=== PATIENT | male | born 1960 | race African-American/Black ===

== ENCOUNTER 2020-05-02 14:48 | Outpatient (REF) | payer BC, SELFPAY ==
[2020-05-02 16:14] LABS: Alanine Aminotransferase 21 U/L (0-40); Albumin Level 4.3 g/dL (3.5-5.0); Alkaline Phosphatase 74 U/L (39-117); Aspartate Amino Transferase 18 U/L (5-37); Bilirubin Direct 0.2 mg/dL (0.0-0.5); Bilirubin Total 0.9 mg/dL (0.0-1.0); Cholesterol 243 mg/dL; HDL Cholesterol 40 mg/dL; LDL Cholesterol Calculated 182 mg/dl; Total Protein 7.1 g/dL (6.5-8.0); Triglycerides 106 mg/dL
== END 2020-05-02 14:49 | disposition home or self-care (01) ==
LOC: HO.LAB 14:48
PROVIDERS: PCP Internal Medicine; Visit Provider Internal Medicine
DX: E78.00 Pure hypercholesterolemia, unspecified (principal); N41.1 Chronic prostatitis; R97.20 Elevated prostate specific antigen [PSA]
CPT/HCPCS: 80061; 80076

== ENCOUNTER 2020-07-01 07:54 | Outpatient (REF) | payer BC, SELFPAY ==
[2020-07-01 09:16] LABS: PSA,Total (Free>4and<10) 1.91 ng/mL (0.00-4.00)
== END 2020-07-01 07:55 | disposition home or self-care (01) ==
LOC: HO.LAB 07:54
PROVIDERS: Visit Provider Urology
DX: N32.0 Bladder-neck obstruction (principal); Z12.5 Encounter for screening for malignant neoplasm of prostate
CPT/HCPCS: 36415; 84153

== ENCOUNTER → 2020-07-03 15:36 | Outpatient (BNVA) | payer BC, SELFPAY | PROVIDERS: PCP Internal Medicine; Referring Provider Internal Medicine; Visit Provider Urology ==

== ENCOUNTER 2021-01-17 11:27 | Outpatient (REF) | payer BC, SELFPAY ==
[2021-01-17 13:02] LABS: Prostate Specific Antigen 1.79 ng/mL (<0.05-4.0)
== END 2021-01-17 11:28 | disposition home or self-care (01) ==
LOC: HO.LAB 11:27
PROVIDERS: PCP Internal Medicine; Visit Provider Urology
DX: N40.1 Benign prostatic hyperplasia with lower urinary tract symptoms (principal); N13.8 Other obstructive and reflux uropathy; Z12.5 Encounter for screening for malignant neoplasm of prostate
CPT/HCPCS: 36415; 84153

== ENCOUNTER → 2021-01-23 14:55 | Outpatient (BNVA) | payer BC, SELFPAY | PROVIDERS: PCP Internal Medicine; Visit Provider Urology ==

== ENCOUNTER 2021-09-09 15:16 | Outpatient (REF) | payer BC, SELFPAY ==
[2021-09-09 15:33] LABS: MANUAL DIFF FLAG NO
[2021-09-09 15:39] LABS: Basophils Percent Auto 0.6 % (0-2); Eosinophils Absolute Auto 0.1 X10*3/uL (0.0-0.4); Eosinophils Percent Auto 1.9 % (0-4); Hematocrit 40.3 % (42.0-52.0); Hemoglobin 13.1 g/dl (14.0-18.0); Imm Gran Abs Auto 0.01 X10*3/uL (0.00-0.03); Imm Gran Pct Auto 0.2 % (0.0-0.4); Lymphocytes Absolute Auto 2.6 X10*3/uL (1.2-4.9); Lymphocytes Percent Auto 54.9 % (20-40); Mean Corpuscular HGB Conc 32.5 g/dl (31.0-36.0); Mean Corpuscular Hemoglobin 28.3 pg (27.0-33.0); Mean Platelet Volume 10.6 fL (9.4-12.4); Monocytes Absolute Auto 0.4 X10*3/uL (0.1-1.2); Monocytes Percent Auto 7.9 % (2-11); Neutrophils Absolute Auto 1.6 x10*3/uL (2.0-8.3); Neutrophils Percent Auto 34.5 % (45-73); Platelet Count 230 X10*3/uL (160-400); Red Blood Count 4.63 X10*6/uL (4.60-5.80); White Blood Count 4.7 X10*3/uL (4.8-10.8)
[2021-09-09 16:15] LABS: Alanine Aminotransferase 19 U/L (0-40); Albumin Level 4.2 g/dL (3.5-5.0); Alkaline Phosphatase 67 U/L (39-117); Anion Gap 8 (12-20); Aspartate Amino Transferase 15 U/L (5-37); Bilirubin Total 0.7 mg/dL (0.0-1.0); Blood Urea Nitrogen 12 mg/dL (9-16); Carbon Dioxide 28 mmol/L (22-29); Chloride 105 mmol/L (96-108); Cholesterol 241 mg/dL; Estimated Glomerular Filt Rate > 60; Glucose Random 86 mg/dL (60-115); HDL Cholesterol 37 mg/dL; LDL Cholesterol Calculated 177 mg/dl; Potassium 4.2 mmol/L (3.3-5.1); Sodium 137 mmol/L (135-145); Total Protein 7.1 g/dL (6.5-8.0); Triglycerides 135 mg/dL
[2021-09-09 16:35] LABS: Prostate Specific Antigen 1.76 ng/mL (<0.05-4.0); Thyroid Stimulating Hormone 1.08 uIU/mL (0.32-4.0)
[2021-09-09 16:36] LABS: Free T4 (Free Thyroxine) 1.05 ng/dL (0.71-1.85)
[2021-09-09 16:58] LABS: Folate 18.3 ng/mL (> or = 4.0); Vitamin B12 873 pg/mL (200-900)
== END 2021-09-09 15:17 | disposition home or self-care (01) ==
LOC: HO.LAB 15:16
PROVIDERS: Urology; PCP Internal Medicine; Visit Provider Internal Medicine
DX: E78.00 Pure hypercholesterolemia, unspecified (principal); R97.20 Elevated prostate specific antigen [PSA]; N40.1 Benign prostatic hyperplasia with lower urinary tract symptoms; N13.8 Other obstructive and reflux uropathy; Z12.5 Encounter for screening for malignant neoplasm of prostate
CPT/HCPCS: 36415; 80053; 80061; 82607; 82746; 84153; 84439; 84443; 85025

== ENCOUNTER 2022-01-19 15:24 | Outpatient (REF) | payer BC, SELFPAY ==
[2022-01-19 18:01] LABS: PSA,Total (Free>4and<10) 1.72 ng/mL (0.00-4.00)
== END 2022-01-19 15:25 | disposition home or self-care (01) ==
LOC: HO.LAB 15:24
PROVIDERS: PCP Internal Medicine; Visit Provider Urology
DX: Z12.5 Encounter for screening for malignant neoplasm of prostate (principal); N41.1 Chronic prostatitis
CPT/HCPCS: 36415; 84153

== ENCOUNTER → 2022-01-23 14:21 | Outpatient (BNVA) | payer BC, SELFPAY | PROVIDERS: PCP Internal Medicine; Visit Provider Urology | DX: N40.1 Benign prostatic hyperplasia with lower urinary tract symptoms (principal); N13.8 Other obstructive and reflux uropathy; N41.1 Chronic prostatitis | CPT/HCPCS: 51798 ==

== ENCOUNTER 2022-03-25 14:44 | Outpatient (REF) | payer BC, SELFPAY ==
[2022-03-25 15:00] LABS: MANUAL DIFF FLAG NO
[2022-03-25 16:09] LABS: Basophils Percent Auto 0.6 % (0-2); Eosinophils Absolute Auto 0.1 X10*3/uL (0.0-0.4); Eosinophils Percent Auto 1.2 % (0-4); Hematocrit 41.1 % (42.0-52.0); Hemoglobin 13.8 g/dl (14.0-18.0); Imm Gran Abs Auto 0.01 X10*3/uL (0.00-0.03); Imm Gran Pct Auto 0.2 % (0.0-0.4); Immature Retic Fraction 15.7 % (2.3-13.4); Lymphocytes Absolute Auto 2.8 X10*3/uL (1.2-4.9); Lymphocytes Percent Auto 55.1 % (20-40); Mean Corpuscular HGB Conc 33.6 g/dl (31.0-36.0); Mean Corpuscular Volume 86.3 fL (80.0-98.0); Mean Platelet Volume 11.6 fL (9.4-12.4); Monocytes Absolute Auto 0.5 X10*3/uL (0.1-1.2); Monocytes Percent Auto 9.2 % (2-11); Neutrophils Absolute Auto 1.7 x10*3/uL (2.0-8.3); Neutrophils Percent Auto 33.7 % (45-73); Platelet Count 253 X10*3/uL (160-400); Red Blood Count 4.76 X10*6/uL (4.60-5.80); Red Cell Distribution Width 13.9 % (11.0-16.0); Retic HGB Equivalent 34.3 pg (30.0-35.0); Reticulocyte Percent 1.5 % (0.5-1.8); Reticulocytes Absolute 0.072 X10*6/uL (0.026-0.095)
[2022-03-25 16:43] LABS: Alanine Aminotransferase 18 U/L (0-40); Albumin Level 4.6 g/dL (3.5-5.0); Alkaline Phosphatase 67 U/L (39-117); Anion Gap 15 (12-20); Aspartate Amino Transferase 19 U/L (5-37); Bilirubin Total 0.7 mg/dL (0.0-1.0); Blood Urea Nitrogen 12 mg/dL (9-16); Calcium 10.3 mg/dL (8.4-10.2); Carbon Dioxide 27 mmol/L (22-29); Chloride 103 mmol/L (96-108); Cholesterol 286 mg/dL; Estimated Glomerular Filt Rate > 60; Glucose Random 76 mg/dL (60-115); HDL Cholesterol 42 mg/dL; Iron 97 mcg/dL (45-160); LDL Cholesterol Calculated 221 mg/dl; Percent Iron Saturation 27 % (15-50); Potassium 4.5 mmol/L (3.3-5.1); Sodium 140 mmol/L (135-145); Total Iron Binding Capacity 357 mcg/dL (228-428); Total Protein 7.5 g/dL (6.5-8.0); Triglycerides 116 mg/dL; Unsaturated Iron Binding 260 ug/dL
[2022-03-25 17:06] LABS: Ferritin 45 ng/mL (20-250)
[2022-03-25 17:10] LABS: Folate > 20.0 ng/mL (> or = 4.0); Vitamin B12 1044 pg/mL (200-900)
== END 2022-03-25 14:45 | disposition home or self-care (01) ==
LOC: HO.LAB 14:44
PROVIDERS: PCP Internal Medicine; Visit Provider Internal Medicine
DX: E78.00 Pure hypercholesterolemia, unspecified (principal); D64.9 Anemia, unspecified
CPT/HCPCS: 36415; 80053; 80061; 82607; 82728; 82746; 83540; 85025; 85045

== ENCOUNTER 2022-07-13 15:40 | Outpatient (REF) | payer BC, SELFPAY ==
[2022-07-13 17:17] LABS: Alanine Aminotransferase 20 U/L (0-40); Albumin Level 4.3 g/dL (3.5-5.0); Alkaline Phosphatase 73 U/L (39-117); Anion Gap 12 (12-20); Aspartate Amino Transferase 20 U/L (5-37); Bilirubin Total 0.7 mg/dL (0.0-1.0); Blood Urea Nitrogen 13 mg/dL (9-16); Calcium 9.8 mg/dL (8.4-10.2); Carbon Dioxide 28 mmol/L (22-29); Chloride 105 mmol/L (96-108); Cholesterol 166 mg/dL; Estimated Glomerular Filt Rate > 60; Glucose Random 85 mg/dL (60-115); HDL Cholesterol 38 mg/dL; LDL Cholesterol Calculated 111 mg/dl; Potassium 4.8 mmol/L (3.3-5.1); Sodium 140 mmol/L (135-145); Triglycerides 88 mg/dL
== END 2022-07-13 15:41 | disposition home or self-care (01) ==
LOC: HO.LAB 15:40
PROVIDERS: PCP Internal Medicine; Visit Provider Internal Medicine
DX: E78.00 Pure hypercholesterolemia, unspecified (principal); N40.1 Benign prostatic hyperplasia with lower urinary tract symptoms; N13.8 Other obstructive and reflux uropathy
CPT/HCPCS: 36415; 80053; 80061

== ENCOUNTER 2022-09-09 15:00 | Outpatient (REF) | payer BC, SELFPAY ==
[2022-09-09 15:20] LABS: MANUAL DIFF FLAG NO
[2022-09-09 15:53] LABS: Basophils Percent Auto 0.6 % (0-2); Eosinophils Absolute Auto 0.1 X10*3/uL (0.0-0.4); Eosinophils Percent Auto 1.2 % (0-4); Hematocrit 42.4 % (42.0-52.0); Hemoglobin 14.1 g/dl (14.0-18.0); Imm Gran Abs Auto 0.01 X10*3/uL (0.00-0.03); Imm Gran Pct Auto 0.2 % (0.0-0.4); Immature Retic Fraction 12.5 % (2.3-13.4); Lymphocytes Absolute Auto 2.8 X10*3/uL (1.2-4.9); Lymphocytes Percent Auto 55.3 % (20-40); Mean Corpuscular HGB Conc 33.3 g/dl (31.0-36.0); Mean Corpuscular Hemoglobin 28.7 pg (27.0-33.0); Mean Corpuscular Volume 86.4 fL (80.0-98.0); Mean Platelet Volume 11.1 fL (9.4-12.4); Monocytes Absolute Auto 0.5 X10*3/uL (0.1-1.2); Monocytes Percent Auto 9.6 % (2-11); Neutrophils Absolute Auto 1.7 x10*3/uL (2.0-8.3); Neutrophils Percent Auto 33.1 % (45-73); Platelet Count 246 X10*3/uL (160-400); Red Blood Count 4.91 X10*6/uL (4.60-5.80); Red Cell Distribution Width 14.5 % (11.0-16.0); Retic HGB Equivalent 34.4 pg (30.0-35.0); Reticulocyte Percent 1.5 % (0.5-1.8); Reticulocytes Absolute 0.072 X10*6/uL (0.026-0.095); White Blood Count 5.1 X10*3/uL (4.8-10.8)
[2022-09-09 16:43] LABS: Ferritin 34 ng/mL (20-250); Prostate Specific Antigen Scr 2.04 ng/mL (<0.05-4.0)
== END 2022-09-09 15:01 | disposition home or self-care (01) ==
LOC: HO.LAB 15:00
PROVIDERS: PCP Internal Medicine; Visit Provider Internal Medicine
DX: Z12.5 Encounter for screening for malignant neoplasm of prostate (principal); E78.00 Pure hypercholesterolemia, unspecified; D64.9 Anemia, unspecified
CPT/HCPCS: 36415; 82728; 84153; 84439; 85025; 85045

== ENCOUNTER 2022-12-16 13:40 | Outpatient (REF) | payer BC, SELFPAY ==
[2022-12-16 15:03] LABS: Alanine Aminotransferase 16 U/L (0-40); Albumin Level 4.5 g/dL (3.5-5.0); Alkaline Phosphatase 64 U/L (39-117); Anion Gap 14 (12-20); Aspartate Amino Transferase 19 U/L (5-37); Blood Urea Nitrogen 13 mg/dL (9-16); Calcium 10.6 mg/dL (8.4-10.2); Carbon Dioxide 27 mmol/L (22-29); Chloride 109 mmol/L (96-108); Cholesterol 264 mg/dL; Estimated Glomerular Filt Rate > 60; Glucose Random 86 mg/dL (60-115); HDL Cholesterol 43 mg/dL; Iron 118 mcg/dL (45-160); LDL Cholesterol Calculated 195 mg/dl; Percent Iron Saturation 36 % (15-50); Potassium 4.5 mmol/L (3.3-5.1); Sodium 145 mmol/L (135-145); Total Iron Binding Capacity 324 mcg/dL (228-428); Total Protein 7.6 g/dL (6.5-8.0); Triglycerides 131 mg/dL; Unsaturated Iron Binding 206 ug/dL
[2022-12-16 15:17] LABS: Thyroid Stimulating Hormone 1.74 uIU/mL (0.32-4.0)
== END 2022-12-16 13:41 | disposition home or self-care (01) ==
LOC: HO.LAB 13:40
PROVIDERS: Absent Provider Urology; PCP Internal Medicine; Visit Provider Internal Medicine
DX: E78.00 Pure hypercholesterolemia, unspecified (principal); D64.9 Anemia, unspecified; N13.8 Other obstructive and reflux uropathy; N40.1 Benign prostatic hyperplasia with lower urinary tract symptoms; Z12.5 Encounter for screening for malignant neoplasm of prostate
CPT/HCPCS: 36415; 80053; 80061; 82607; 82746; 83540; 84153; 84443

== ENCOUNTER 2023-01-26 14:30 | Outpatient (AMB) | payer BC, SELFPAY ==
--- NOTE | 2023-01-26 14:39 | A.OFFVIS_ITS ---
Intake Intake Visit Reasons: 1Y PSA/PVR(set) Intake Note: Patient is present for Follow Up psa/pvr Urology Med: None Antibiotic Allergy: None Blood Thinner: None [facility]: [facility] PVR:6ML Allergies cinnamon Allergy (Unknown, Verified 01/26/23 14:39) rash pravastatin Adverse Reaction (Intermediate, Verified 01/26/23 14:39) drowsiness rosuvastatin Adverse Reaction (Intermediate, Verified 01/26/23 14:39) myalgia simvastatin Adverse Reaction (Intermediate, Verified 01/26/23 14:39) epigastric pain cologne Allergy (Unknown, Uncoded 01/26/23 14:39) redness and itching spices Allergy (Unknown, Uncoded 01/26/23 14:39) redness and itching HPI HPI Comments History of Present Illness Details Carlos RUTLEDGE is a very pleasant [facility] male. He is a patient of Dr Page. He is seen for the following urologic conditions - lower urinary tract symptoms - elevated PSA Minimal urinary issues PSA remains low 12 month follow-up Elevated PSA/Abnormal RADHA: Finished finasteride previously He presents for further evaluation of elevated PSA Current management is medication with 5AR. Laboratory investigations include a total PSA evaluation August 2016 6.2, 6.0, free PSA 8% 02/28 PSA 8.5 - persistent elevation 09/29 PSA 7.4, 09/30 PSA 8.2, 04/01 4.3 10/31 4.9 (stopped finasteride a month ago), 07/04 1.9, 02/01 1.8, 02/02 1.7, 09/03 2.0. 01/03 2.2 Imaging investigations include a transrectal ultrasound Yes Date 09/28 Prostate Volume 55 a prostate MRI Yes 03/31 45gm No areas of diffusion uptake Individualized Prostate Cancer Risk Calculator >10% high risk - PCPT 30% high risk , Discussion regarding TRUS biopsy performed. A TRUS biopsy has been performed and is negative 09/28 multiple cores of chronic prostatitis Therapeutic plan will be continued surveillance ON LICENSE OF [facility] Medical History Chronic prostatitis High prostate specific antigen (PSA) Hypercalcemia Hypercholesterolemia Vitamin D deficiency Surgical History S/P TURP (status post transurethral resection of prostate) Family History Father No problems noted. Mother Stroke Sister Breast cancer Hypertension Brother Diabetes Social History Housing: Apartment Alcohol intake: current Patient Tobacco Use Status: Never used Tobacco e-Cigarette/Vaping Use: Never Used Second Hand Smoke Exposure: No service: No Current occupational status: employed Cognitive needs: No Hearing needs: No Vision needs: Yes Review of Systems Const Denies chills and Denies fever(s) Card Reports no additional complaints and Denies syncope Resp Denies cough GI Denies abdominal pain and Denies heartburn Reports as per HPI and Denies change in libido Neuro Denies syncope Psych Denies change in libido Endo Denies change in libido Physical Exam Const General: cooperative, healthy appearing, comfortable and no acute distress Orientation/consciousness: patient oriented x3 HEENT Face and sinus: Yes normal facial exam Mouth: moist mucous membranes Neck Neck: Yes normal visual inspection, Yes full ROM and Yes trachea midline Chest Chest palpation & inspection: normal inspection of the chest Resp Effort & Inspection: normal respiratory effort, able to speak in complete sent ences and no respiratory distress GI Inspection: Yes normal to inspection Back/Spine/Pelvis Cervical Spine: normal cervical lordosis Thoracic/Lumbar Spine: thoracic and lumbar spine normal to inspection Skin General skin exam: no rashes or lesions noted Neuro General: patient oriented x3, gait normal, tone normal and moves all extremities Extrem General: Yes normal to inspection and Yes capillary refill normal Office Procedures Post Void Residual Post Residual Void Post Void Residual (PVR): 6 62545-[id number] Void Residual by ultrasound Results AMB Urinalysis, Automated UA Leukoctes 0 Elie/uL Last Edit by RUPESH Barber on 01/26/23 14:51 UA Nitrite Negative Last Edit by RUPESH Barber on 01/26/23 14:51 UA Urobilinogen 0.2 mg/dL Last Edit by RUPESH Barber on 01/26/23 14:5 1 UA Protein 0 mg/dL Last Edit by RUPESH Barber on 01/26/23 14:51 UA pH 6.0 Last Edit by Yessi Briseno, RMA on 01/26/23 14:51 UA Blood 0 Chandler/uL Last Edit by Yessi Briseno, RMA on 01/26/23 14:51 UA Specific Newell 1.010 Last Edit by Yessi Briseno, RMA on 01/26/23 14: 51 UA Ketone Negative Last Edit by Yessi Briseno, RMA on 01/26/23 14:51 UA Bilirubin 0 mg/dL Last Edit by Yessi Briseno, RMA on 01/26/23 14:51 UA Glucose 0 mg/dL Last Edit by Yessi Reidro, RMA on 01/26/23 14:51 Results Reviewed Results Reviewed: Laboratory Last Values Urine pH (Auto) 6.0 01/26/23 14:41 Specific Newell (Auto) 1.010 01/26/23 14:41 Urine Protein (Auto) 0 mg/dL 01/26/23 14:41 Glucose (UA)(Auto) 0 mg/dL 01/26/23 14:41 Urine Ketones (Auto) Negative 01/26/23 14:41 Urine Blood (Auto) 0 Chandler/uL 01/26/23 14:41 Urine Nitrite (Auto) Negative 01/26/23 14:41 Urine Bilirubin (Auto) 0 mg/dL 01/26/23 14:41 Urine Urobilinogen (Auto) 0.2 mg/dL 01/26/23 14:41 Leukocyte Esterase (Auto) 0 Elie/uL 01/26/23 14:41 Assessment & Plan Assessment & Plan (1) BPH w urinary obs/LUTS: Code(s): N40.1 - Benign prostatic hyperplasia with lower urinary tract symptoms; N13.8 - Other obstructive and reflux uropathy (2) Chronic prostatitis: Code(s): N41.1 - Chronic prostatitis Plan Twelve month follow-up Orders: Orders AMB Urinalysis Automated Today Z13.9 - Encounter for screening, unspecified AMB Post Void Residual by ultrasound Today N13.8 - Other obstructive and reflux uropathy, N40.1 - Benign prostatic hyperplasia with lower urinary tract symptoms Patient Instructions: Imaging studies, laboratory and physical exam results were discussed and reviewed in detail. No major barriers to patient understanding were identified. An opportunity to ask questions regarding the treatment plan was provided. All questions were answered. The patient expressed understanding and agreement with the above treatment plan. The patient is aware they should contact our office by phone for worsening of their current condition or the appearance of new urologic symptoms. Compliance is encouraged with any medications and followup testing that is ordered. It is a privilege to participate in the urologic care of your patient. If you have any questions or concerns regarding treatment for the above conditions, or other urologic issues, please do not hesitate to contact me. The office telephone contact is [phone]. This note is constructed using voice recognition software. While every effort has been made to ensure accuracy manufacturing technologist errors may have been included. Yours sincerely, Dr Jessee Agosto MD, [facility] - Urology Providers of Expert, Compassionate Care for the Genitourinary System Coding Level of Care Code Est Pt Level 4 (82966) Diagnoses BPH w urinary obs/LUTS N40.1; N13.8 Chronic prostatitis N41.1 CPT Codes Post Residual Void - PVR CPT Code: 52299-Oalz Void Residual by ultrasound ([id number])
== END 2023-01-26 15:49 | disposition home or self-care (01) ==
PROVIDERS: Visit Provider Urology
DX: N40.1 Benign prostatic hyperplasia with lower urinary tract symptoms (principal); N13.8 Other obstructive and reflux uropathy; N41.1 Chronic prostatitis
CPT/HCPCS: 99214

== ENCOUNTER → 2023-01-26 14:30 | Outpatient (BNVA) | payer BC, SELFPAY | PROVIDERS: Visit Provider Urology | DX: N40.1 Benign prostatic hyperplasia with lower urinary tract symptoms (principal); N13.8 Other obstructive and reflux uropathy; R97.20 Elevated prostate specific antigen [PSA]; N41.1 Chronic prostatitis | CPT/HCPCS: 51798 ==

== ENCOUNTER 2023-04-07 14:59 | Outpatient (REF) | payer BC, SELFPAY ==
[2023-04-07 15:52] LABS: Alanine Aminotransferase 16 U/L (0-40); Albumin Level 4.3 g/dL (3.5-5.0); Alkaline Phosphatase 77 U/L (39-117); Anion Gap 10 (12-20); Aspartate Amino Transferase 19 U/L (5-37); Bilirubin Total 0.8 mg/dL (0.0-1.0); Blood Urea Nitrogen 11 mg/dL (9-16); Calcium 10.2 mg/dL (8.4-10.2); Carbon Dioxide 28 mmol/L (22-29); Chloride 105 mmol/L (96-108); Cholesterol 210 mg/dL (<200); Estimated Glomerular Filt Rate > 60; Glucose Random 86 mg/dL (60-115); HDL Cholesterol 36 mg/dL (>40); LDL Cholesterol Calculated 149 mg/dL (<100); Potassium 3.9 mmol/L (3.3-5.1); Sodium 139 mmol/L (135-145); Total Protein 7.4 g/dL (6.5-8.0); Triglycerides 128 mg/dL (<150)
[2023-04-08 14:39] LABS: Calcium (PTHI) 9.8 mg/dL (8.6-10.3); PTHI 67 pg/mL (16-77)
[2023-04-09 11:13] LABS: Calcium, Ionized 5.4 mg/dL (4.7-5.5)
== END 2023-04-07 15:00 | disposition home or self-care (01) ==
LOC: HO.LAB 14:59
PROVIDERS: PCP Internal Medicine; Visit Provider Internal Medicine
DX: E83.52 Hypercalcemia (principal); E78.00 Pure hypercholesterolemia, unspecified
CPT/HCPCS: 36415; 80053; 80061; 82330; 83970

== ENCOUNTER 2023-04-09 13:51 | Outpatient (AMB) | payer BC, SELFPAY ==
[2023-04-09 13:57] VITALS: BP 132/70; PULSE 66; O2SAT 98; BMI 25.7
--- NOTE | 2023-04-09 13:57 | A.OFFPC_ITS ---
Vital Signs 04/09/23 13:57 Height 6 ft 2 in Weight 200 lb BMI 25.7 BP 132/70 Blood Pressure Location Lt brachial Position Sitting Pulse 66 Pulse Source Pulse Oximeter Pulse Oximetry (%) 98 Oxygen Delivery Method Room Air Intake Visit Reasons: cholesterol,hypercalcemia Allergies cinnamon Allergy (Unknown, Verified 04/09/23 13:57) rash pravastatin Adverse Reaction (Intermediate, Verified 04/09/23 13:57) drowsiness rosuvastatin Adverse Reaction (Intermediate, Verified 04/09/23 13:57) myalgia simvastatin Adverse Reaction (Intermediate, Verified 04/09/23 13:57) epigastric pain cologne Allergy (Unknown, Uncoded 04/09/23 13:57) redness and itching spices Allergy (Unknown, Uncoded 04/09/23 13:57) redness and itching Tobacco use date assessed: 09/11/22 Dental Screening Dental Screen Date: 04/09/23 Did you have a dental visit in the last 12 months?: Yes Did you have a dental problem in the last 6 months where you did not have access to dental care?: No Was dental information given to patient?: Patient has dentist HPI cholesterol,hypercalcemia HPI Details 62-year-old male with history of hyperch olesterolemia noted to have an elevated blood pressure in December patient comes in for follow-up. Review of the notes in January went to see the urologist diagnosis of chronic prostatitis and continue to be followed. [facility] Medical History Vitamin D deficiency High prostate specific antigen (PSA) Hypercalcemia Chronic prostatitis Hypercholesterolemia Surgical History S/P TURP (status post transurethral resection of prostate) Family History Father No problems noted. Mother Stroke Sister Breast cancer Hypertension Brother Diabetes Social History Housing: Apartment Alcohol intake: current Patient Tobacco Use Status: Never used Tobacco e-Cigarette/Vaping Use: Never Used Second Hand Smoke Exposure: No service: No Current occupational status: employed Cognitive needs: No Hearing needs: No Vision needs: Yes Questionnaire PHQ-9 Over the last 2 weeks, how often have you been bothered by any of the following problems? 1. Little interest or pleasure in doing things: not at all 2. Feeling down, depressed, or hopeless: not at all 3. Trouble falling or staying asleep, or sleeping too much: not at all 4. Feeling tired or having little energy: not at all 5. Poor appetite or overeating: not at all 6. Feeling bad about yourself - or that you are a failure or have let yourself or your family down: not at all 7. Trouble concentrating on things, such as reading the newspaper or watching television: not at all 8. Moving or speaking so slowly that other people could have noticed. Or the opposite - being so fidgety or restless that you have been moving around a lot more than usual: not at all 9. Thoughts that you would be better off or of hurting yourself in some way: not at all Total score: 0 Depression Screening Interpretation: Negative Depression Screening Done: Yes Source: Developed by Drs. Jose Barreto, Vicenta Bashir, Luis Morton and colleagues, with an educational radha from [employer]. Thrive Questionnaire Date Thrive assessed: 09/11/22 AUDIT C Alcohol Use Questionnaire (AUDIT-C) 1. How often do you have a drink containing alcohol?: Monthly or less 2. How many drinks containing alcohol do you have on a typical day when you are drinking?: 1 or 2 3. How often do you have six or more drinks on one occasion?: Never Total Score: 1 TIMI-7 AMB Questionnaire TIMI-7 Date TIMI - 7 assessed: 09/11/22 Source: Developed by Drs. Jose Barreto, Vicenta Bashir, Luis Morton and colleagues, with an educational radha from [employer]. Physical exam (Primary Care) Vital Signs: Last Vital Signs Pulse 66 04/09/23 13:57 BP 132/70 04/09/23 13:57 Pulse Ox 98 04/09/23 13:57 Oxygen Delivery Method Room Air 04/09/23 13:57 BMI result Body Mass Index 25.7 Tobacco/Smoking Status: Tobacco use Status Tobacco use date assessed 09/11/22 04/09/23 14:01 Patient Tobacco Use Status Never used Tobacco 04/09/23 14:01 e-Cigarette/Vaping Use Never Used 04/09/23 14:01 PHQ-9: PHQ-9 Score PHQ-9: Total score 0 04/09/23 14:01 Depression Screening Interpretation: Negative Thrive Assessment: Date of Thrive Assessment Date Thrive assessed 09/11/22 04/09/23 14:01 Const General: alert; No acute distress Eyes Conjunctivae: conjunctivae normal Resp Auscultation: clear to auscultation bilaterally Cardio Rate: regular rate Rhythm: regular rhythm GI Inspection: Yes normal to inspection Extrem General: Yes normal to inspection and No edema Assessment and Plan Assessment & Plan (1) Blood pressure elevated without history of HTN: Code(s): R03.0 - Elevated blood-pressure reading, without diagnosis of hypertension Plan: Blood pressure of follow-up has been normal (2) Colon cancer screening: Code(s): Z12.11 - Encounter for screening for malignant neoplasm of colon Plan: 05/21/2023 scheduled (3) Hypercalcemia: Code(s): E83.52 - Hypercalcemia Plan: Resolved (4) Chronic prostatitis: Code(s): N41.1 - Chronic prostatitis Plan: Patient follows up with urology and under surveillance (5) Hypercholesterolemia: Code(s): E78.00 - Pure hypercholesterolemia, unspecified Plan: Avoid fried foods, chicken skin, eggs, butter margarine, pastries and meat. Be it pork or beef they have a lot of cholesterol LDL goal of less than 130 and triglyceride of less than 150 on Zetia Orders: Orders Thyroid Stimulating Hormone 5 Months E78.00 - Pure hypercholesterolemia, unspecified Lipid Panel 5 Months E78.00 - Pure hypercholesterolemia, unspecified Vitamin B12 and Folate 5 Months E78.00 - Pure hypercholesterolemia, unspecified Prostate Specific Antigen Scr 5 Months E78.00 - Pure hypercholesterolemia, unspecified Complete Blood Count Auto Diff 5 Months E78.00 - Pure hypercholesterolemia, unspecified Comprehensive Met. Panel 5 Months E78.00 - Pure hypercholesterolemia, unspecified Free T4 (Free Thyroxine) 5 Months E78.00 - Pure hypercholesterolemia, unspecified Coding Level of Care Code Est Pt Level 4 (24852) Diagnoses Blood pressure elevated without history of HTN R03.0 Colon cancer screening Z12.11 Hypercalcemia E83.52 Chronic prostatitis N41.1 Hypercholesterolemia E78.00
== END 2023-04-09 14:40 | disposition home or self-care (01) ==
PROVIDERS: PCP Internal Medicine; Visit Provider Internal Medicine
DX: R03.0 Elevated blood-pressure reading, without diagnosis of hypertension (principal); Z12.11 Encounter for screening for malignant neoplasm of colon; E83.52 Hypercalcemia; N41.1 Chronic prostatitis; E78.00 Pure hypercholesterolemia, unspecified
CPT/HCPCS: 99214

== ENCOUNTER 2023-05-21 06:24 | Day surgery (SDC) | payer BC, SELFPAY ==
--- NOTE | 2023-05-19 13:56 | HO.ANESPROP2 ---
Documented by User: Rhea Webb NP 05/19/23 13:57 HPI - Anesthesia Eval Consult details Narrative: 62yo M for Colonoscopy PMFSH Active Problems Active Problems: All Active Problems (Updated 09/11/22 @ 16:53 by Suzi Page MD) Blood pressure elevated without history of HTN (Acute) Colon cancer screening (Acute) Hypercalcemia (Acute) Costochondritis (Acute) Anemia (Acute) Chronic prostatitis (Acute) BPH w urinary obs/LUTS (Acute) High prostate specific antigen (PSA) (Acute) Annual physical exam (Acute) Hypercholesterolemia (Acute) Past Medical History Medical History Vitamin D deficiency High prostate specific antigen (PSA) Hypercalcemia Chronic prostatitis Hypercholesterolemia Family History Family History Father No problems noted. Mother Stroke Sister Breast cancer Hypertension Brother Diabetes Surgical History Surgical History H/O colonoscopy S/P TURP (status post transurethral resection of prostate) Social History Social History Housing: Apartment Alcohol intake: current Patient Tobacco Use Status: Never used Tobacco e-Cigarette/Vaping Use: Never Used Second Hand Smoke Exposure: No Are you DNR?: No Advance Directives: No Advance Directives Information Provided: Yes Nutrition Risks: No Nutritional Risk service: No Current occupational status: employed Cognitive needs: No Hearing needs: No Vision needs: Yes Meds Allergies Allergy/AdvReac Type Severity Reaction Status Date / Time cinnamon Allergy Unknown rash Verified 05/21/23 06:34 pravastatin AdvReac Intermediate drowsiness Verified 05/21/23 06:34 rosuvastatin AdvReac Intermediate myalgia Verified 05/21/23 06:34 simvastatin AdvReac Intermediate epigastric Verified 05/21/23 06:34 pain cologne Allergy Unknown redness Uncoded 05/21/23 06:34 and itching spices Allergy Unknown redness Uncoded 05/21/23 06:34 and itching Home Medications Medication Instructions Recorded Confirmed Last Taken Type Men's Multi-Vitamin 05/21/23 05/21/23 Unknown History Assessment and Plan Assessment Anesthesia Assessment: Chart Reviewed Documented by User: Sea Lopez MD 05/21/23 07:16 PMF Past Medical History Medical History Vitamin D deficiency High prostate specific antigen (PSA) Hypercalcemia Chronic prostatitis Hypercholesterolemia Family History Family History Father No problems noted. Mother Stroke Sister Breast cancer Hypertension Brother Diabetes Family history of problems with anesthesia: No Surgical History Surgical History H/O colonoscopy S/P TURP (status post transurethral resection of prostate) History of Problems with Anesthesia: No Social History Social History Housing: Apartment Alcohol intake: current Patient Tobacco Use Status: Never used Tobacco e-Cigarette/Vaping Use: Never Used Second Hand Smoke Exposure: No Are you DNR?: No Advance Directives: No Advance Directives Information Provided: Yes Nutrition Risks: No Nutritional Risk service: No Current occupational status: employed Cognitive needs: No Hearing needs: No Vision needs: Yes Meds Allergies Allergy/AdvReac Type Severity Reaction Status Date / Time cinnamon Allergy Unknown rash Verified 05/21/23 06:34 pravastatin AdvReac Intermediate drowsiness Verified 05/21/23 06:34 rosuvastatin AdvReac Intermediate myalgia Verified 05/21/23 06:34 simvastatin AdvReac Intermediate epigastric Verified 05/21/23 06:34 pain cologne Allergy Unknown redness Uncoded 05/21/23 06:34 and itching spices Allergy Unknown redness Uncoded 05/21/23 06:34 and itching Home Medications Medication Instructions Recorded Confirmed Last Taken Type Men's Multi-Vitamin 05/21/23 05/21/23 Unknown History Exam Airway Mallampati Class: II TM Dist: >3cm Neck ROM: Limited Heart: rrr Lungs: cta Assessment and Plan Assessment Anesthesia Assessment: Anesthesia Plan Discussed Final Anesthetic Review Family History of Problems with Anesthesia: No History of Problems with Anesthesia: No NPO: Yes ASA Class: II Final Preanesthetic Review: No Changes in Pt Med Stat, Meds/Allgs Chart Reviewed, Consent Obtained/Reviewed and Anes Risks/Benef Reviewed Patient Risk: Intermediate Procedure Risk: Low Anesthetic Plan Anesthetic Plan: MAC: and Agree w/ Assess. and Plan
[2023-05-19 14:13] VITALS: BMI 25.7
--- OUTSIDE RECORDS SUMMARY | 2023-05-21 06:26 | XMS_ITS | Patient Health Record ---
Author Name Unknown Organization [facility] Address [address] [place] [id number] Care Team Providers Care Operations Manager Station Name Role Phone Suzi Page MD Primary Care Provider Jose Durant [phone] ALLERGIES No Known Allergies REASON FOR REFERRAL No Information MEDICATIONS Medication SIG (Take, Route, Frequency, Duration) Notes Start Date End Date Status Zinc 50 MG 1 tablet Orally Once a day for 30 day(s) Active Vitamin D 25 MCG (1000 UT) 1 tablet Oral ly Once a day for 30 day(s) Active Ezetimibe 10 MG TAKE 1 TABLET BY GRAZYNA TH EVERY DAY Oral for 90 Active SOCIAL HISTORY Sex Assigned At : Social History Observation Description Sex Assigned At Unknown PROBLEMS Problem Type ICD Code Onset Dates Problem Status W/U Status Risk SNOMED Code Notes Problem Screen for colon cancer (Z12.11) Active confirmed [id number] Problem Preprocedural examination (Z01.818) Active confirmed [id number] Encounters Encounter Location Date Provider Diagnosis [facility] Outpatient [address] [place] [id number] 05/21/2023 Jose Ramirez [facility] [address] [place] [phone] 02/04/2023 Jose Ramirez Screen for colon cancer Z12.11 and Preprocedural examination Z01.818 ASSESSMENTS Encounter Date Diagnosis Assessment Notes Treatment Notes Treatment Clinical Notes 02/04/2023 Screen for colon cancer (ICD-10 - Z12.11) 02/04/2023 Preprocedural examination (ICD-10 - Z01.818) PLAN OF TREATMENT Future Test Test Name Order Date COLONOSCOPY 09/08/2012 COLONOSCOPY 02/04/2023 Next Appt Details Provider Name:Jose Ramirez , 05/21/2023 07:30:00 AM, [address] [place] [address] , [place], [place], [phone], Insurance Providers Payer Name Payer Address Payer Phone Subscriber Number Group Number Insured Name Patient Relationship to Insured Coverage Start Date Coverage End Date [facility] [address] [place], [place] [id number] BLANCHE RUTLEDGE Self - patient is the insured MEDICAL (GENERAL) HISTORY Medical History History ICD Code Denies NE,DM,CVA,Lung disease,renal dise ase hypercholesterolemia Negative screening colonoscopy in 2012 Surgical History Surgery Date(Month/Year)
[2023-05-21 06:33] VITALS: BMI 25.9
[2023-05-21] MEDS: Lactated Ringers 1,000 ML 100 ML IVCONT (06:44)
[2023-05-21 06:52] VITALS: BP 132/84; PULSE 66; RESP 18; TEMP 36.6; O2SAT 100
[2023-05-21 08:36] VITALS: BP 124/80; PULSE 70; RESP 16; TEMP 36.9; O2SAT 98
--- NOTE | 2023-05-21 08:40 | PM.OP ---
Brief Operative Note Date of Service: 05/21/23 Pre-op diagnosis: Screening Post-op diagnosis: other (Diverticulosis) Procedure: Colonoscopy to the cecum Surgeon: Jose Ramirez MD Anesthesia: MAC Was an Director Of Culture used for this Procedure?: No Estimated blood loss (mL): 0 Pathology: none sent Condition: stable Disposition: PACU
[2023-05-21 08:51] VITALS: BP 127/82; PULSE 60; RESP 16; O2SAT 98
[2023-05-21 09:06] VITALS: BP 141/87; PULSE 62; RESP 16; TEMP 36.3; O2SAT 99
--- NOTE | 2023-05-21 09:10 | OP_ITS ---
DATE OF SERVICE: 05/21/2023 SURGEON: Jose Ramirez MD INDICATIONS: The patient presents for evaluation of colorectal cancer screening. Full consent was obtained from him for this, including risks of bleeding and perforation. PREOPERATIVE DIAGNOSIS: Colorectal cancer screening. POSTOPERATIVE DIAGNOSIS: Colorectal cancer screening, sigmoid diverticulosis, and internal hemorrhoids. PROCEDURE PERFORMED: Colonoscopy to cecum. ESTIMATED BLOOD LOSS: COMPLICATIONS: ANESTHESIA: Medication used; monitored anesthesia care. ASSISTANTS: SPECIMENS: DESCRIPTION OF PROCEDURE: The patient was placed in the left lateral decubitus position. The digital rectal exam revealed no abnormalities. The Olympus videopediatric colonoscope was entered into the rectum and advanced easily to the cecum. Once in the cecum, I did identify normal-appearing cecal pouch with appendiceal orifice and a normal-appearing ileocecal valve. The entire cecum was well visualized and appeared normal. The ileocecal valve appeared normal. The scope was slowly withdrawn assessing all mucosal surfaces carefully. For the most part, preparation was excellent, although in the sigmoid colon, there was some residual liquid and some small solid stool that was irrigated and washed away as best as possible, but not completely. I did not visualize any sign of polyps, colitis, nor angiodysplasia. There was a mild amount of sigmoid diverticulosis. In the rectum, scope was retroflexed visualizing small internal hemorrhoids, but no other pathology. The rectal mucosa appeared normal. The scope was straightened and withdrawn from the patient. He tolerated the procedure well and was returned to the recovery area in stable condition. IMPRESSION: 1. Sigmoid diverticulosis. 2. Internal hemorrhoids. PLAN: Given the negative exam and negative family history, I would recommend a repeat colonoscopy in 10 years for further screening. He will otherwise see me on a p.r.n. basis. This has been discussed with his . MD VANDA Hu/KASSIDY / [id number]
== END 2023-05-21 09:29 | disposition home or self-care (01) ==
PROVIDERS: PCP Internal Medicine; Visit Provider Internal Medicine
PROC: 0DJD8ZZ Inspection of Lower Intestinal Tract, Via Natural or Artificial Opening Endoscopic (ICD-10-PCS; CPT 45378; principal; 2023-05-21 07:30)
DX: Z12.11 Encounter for screening for malignant neoplasm of colon (principal); K57.30 Diverticulosis of large intestine without perforation or abscess without bleeding; K64.8 Other hemorrhoids; E78.00 Pure hypercholesterolemia, unspecified; Z79.899 Other long term (current) drug therapy
CPT/HCPCS: 45378; J2704

== ENCOUNTER 2023-09-21 15:47 | Outpatient (REF) | payer BC, SELFPAY ==
[2023-09-21 16:00] LABS: MANUAL DIFF FLAG NO
[2023-09-21 17:08] LABS: Basophils Percent Auto 0.9 % (0-2); Eosinophils Absolute Auto 0.1 X10*3/uL (0.0-0.4); Eosinophils Percent Auto 2.7 % (0-4); Hematocrit 40.7 % (42.0-52.0); Hemoglobin 13.4 g/dl (14.0-18.0); Lymphocytes Absolute Auto 2.6 X10*3/uL (1.2-4.9); Lymphocytes Percent Auto 58.2 % (20-40); Mean Corpuscular HGB Conc 32.9 g/dl (31.0-36.0); Mean Corpuscular Hemoglobin 28.6 pg (27.0-33.0); Mean Platelet Volume 12.2 fL (9.4-12.4); Monocytes Absolute Auto 0.4 X10*3/uL (0.1-1.2); Monocytes Percent Auto 9.2 % (2-11); Neutrophils Absolute Auto 1.3 x10*3/uL (2.0-8.3); Platelet Count 224 X10*3/uL (160-400); Red Blood Count 4.68 X10*6/uL (4.60-5.80); Red Cell Distribution Width 13.9 % (11.0-16.0); White Blood Count 4.5 X10*3/uL (4.8-10.8)
[2023-09-21 17:41] LABS: Alanine Aminotransferase 22 U/L (0-40); Albumin Level 4.2 g/dL (3.5-5.0); Alkaline Phosphatase 73 U/L (39-117); Anion Gap 11 (12-20); Aspartate Amino Transferase 19 U/L (5-37); Bilirubin Total 0.9 mg/dL (0.0-1.0); Blood Urea Nitrogen 10 mg/dL (9-16); Calcium 10.1 mg/dL (8.4-10.2); Carbon Dioxide 27 mmol/L (22-29); Chloride 106 mmol/L (96-108); Cholesterol 214 mg/dL (<200); Estimated Glomerular Filt Rate > 60; Glucose Random 82 mg/dL (60-115); HDL Cholesterol 36 mg/dL (>40); LDL Cholesterol Calculated 138 mg/dL (<100); Potassium 4.4 mmol/L (3.3-5.1); Sodium 140 mmol/L (135-145); Total Protein 7.2 g/dL (6.5-8.0); Triglycerides 200 mg/dL (<150)
[2023-09-21 17:56] LABS: Free T4 (Free Thyroxine) 0.82 ng/dL (0.71-1.85); Thyroid Stimulating Hormone 1.13 uIU/mL (0.32-4.0)
[2023-09-21 18:04] LABS: Folate 13.6 ng/mL (> or = 4.0); Prostate Specific Antigen Scr 1.69 ng/mL (<0.05-4.0); Vitamin B12 897 pg/mL (200-900)
== END 2023-09-21 15:48 | disposition home or self-care (01) ==
LOC: HO.LAB 15:47
PROVIDERS: PCP Internal Medicine; Visit Provider Internal Medicine
DX: Z12.5 Encounter for screening for malignant neoplasm of prostate (principal); E78.00 Pure hypercholesterolemia, unspecified
CPT/HCPCS: 36415; 80053; 80061; 82607; 82746; 84153; 84439; 84443; 85025

== ENCOUNTER 2023-09-24 14:43 | Outpatient (AMB) | payer BC, SELFPAY ==
--- NOTE | 2023-09-24 14:44 | MHC.PC.OV ---
Vital Signs 09/24/23 14:54 Height 6 ft 2 in Weight 208 lb 0.4 oz BMI 26.7 BP 142/90 H Blood Pressure Location Lt brachial Position Sitting Pulse 78 Pulse Source Pulse Oximeter Pulse Oximetry (%) 97 Oxygen Delivery Method Room Air Intake Visit Reasons: Annual Exam Allergies cinnamon Allergy (Unknown, Verified 05/21/23 06:34) rash pravastatin Adverse Reaction (Intermediate, Verified 05/21/23 06:34) drowsiness rosuvastatin Adverse Reaction (Intermediate, Verified 05/21/23 06:34) myalgia simvastatin Adverse Reaction (Intermediate, Verified 05/21/23 06:34) epigastric pain cologne Allergy (Unknown, Uncoded 05/21/23 06:34) redness and itching spices Allergy (Unknown, Uncoded 05/21/23 06:34) redness and itching Medication List - Last Reconciled 09/24/23 by Suzi Page MD [Men's Multi-Vitamin ] Tobacco use date assessed: 09/24/23 Dental Screening Dental Screen Date: 09/24/23 Did you have a dental visit in the last 12 months?: Yes Did you have a dental problem in the last 6 months where you did not have access to dental care?: No Was dental information given to patient?: Patient has dentist HPI Annual Exam HPI Details 63-year-old male with a history of chronic prostatitis hypercholesterolemia last seen in March 2023. Patient is here for an annual physical. Noted blood pressure elevation sent for colon cancer screening. Colonoscopy done May 2023 negative exam advised repeat in 10 years. BP 131/79 PFSH Medical History (Updated 09/24/23 @ 15:08 by Suzi Page MD) Chronic prostatitis High prostate specific antigen (PSA) Hypercalcemia Colon cancer screening Vitamin D deficiency Hypercalcemia Hypercholesterolemia Surgical History H/O colonoscopy S/P TURP (status post transurethral resection of prostate) Family History Father No problems noted. Mother Stroke Sister Breast cancer Hypertension Brother Diabetes Social History (Updated 09/24/23 @ 15:11 by Suzi Page MD) Housing: Apartment Alcohol intake: current Comment: wine once Q 6 months Patient Tobacco Use Status: Never used Tobacco e-Cigarette/Vaping Use: Never Used Second Hand Smoke Exposure: No service: No Current occupational status: employed Cognitive needs: No Hearing needs: No Vision needs: Yes Questionnaire PHQ-9 Over the last 2 weeks, how often have you been bothered by any of the following problems? 1. Little interest or pleasure in doing things: not at all 2. Feeling down, depressed, or hopeless: not at all 3. Trouble falling or staying asleep, or sleeping too much: not at all 4. Feeling tired or having little energy: not at all 5. Poor appetite or overeating: not at all 6. Feeling bad about yourself - or that you are a failure or have let yourself or your family down: not at all 7. Trouble concentrating on things, such as reading the newspaper or watching television: not at all 8. Moving or speaking so slowly that other people could have noticed. Or the opposite - being so fidgety or restless that you have been moving around a lot more than usual: not at all 9. Thoughts that you would be better off or of hurting yourself in some way: not at all Total score: 0 Depression Screening Interpretation: Negative Depression Screening Done: Yes Source: Developed by Drs. Jose Barreto, Vicenta Bashir, Luis Morton and colleagues, with an educational radha from [employer]. Thrive Questionnaire Date Thrive assessed: 09/24/23 I am a: Patient What is your living situation today?: I have a steady place to live Within the past 12 months, did the food you bought not last and you didn't have the money to get more?: Never true Within the past 12 months, did you worry whether your food would run out before you got money to buy more?: Never true Do you have trouble paying for medicines?: No Do you have trouble getting transportation to medical appointments?: No Do you have trouble paying your heating and electricity bill?: No Do you have trouble taking care of your child, family member or friend?: No Do you have trouble with day-to-day activities such as bathing, preparing meals, shopping, managing finances, etc.?: No Are you currently unemployed and looking for a job?: No Are you interested in more education?: No Please select the resources that you would like help with: None Currently or been in a relationship where the following occur: no concerns reported THRIVE Score: 0 AUDIT C Alcohol Use Questionnaire (AUDIT-C) 1. How often do you have a drink containing alcohol?: Monthly or less 2. How many drinks containing alcohol do you have on a typical day when you are drinking?: 1 or 2 3. How often do you have six or more drinks on one occasion?: Never Total Score: 1 TIMI-7 AMB Questionnaire TIMI-7 Date TIMI - 7 assessed: 09/24/23 Feeling nervous, anxious, or on edge: 0 = Not at all Not being able to stop or control worryin = Not at all Worrying too much about different things: 0 = Not at all Trouble relaxin = Not at all Being so restless that it is hard to sit still: 0 = Not at all Becoming easily annoyed or irritable: 0 = Not at all Feeling afraid as if something awful might happen: 0 = Not at all Total TIMI-7 score (0-4 normal; 5-9 mild; 10-14 moderate; 15-21 severe): 0 Source: Developed by Drs. Jose Barreto, Vicenta Bashir, Luis Morton and colleagues, with an educational radha from [employer]. TIMI-7 Assessment Billing TIMI-7 Assessment Tool: TIMI-7 Assessment 01002 Review of Systems Const Denies poor appetite and Denies weakness Eyes Denies no additional complaints ENT Reports Normal hearing present, Denies dizziness, Denies nasal congestion, Denies tinnitus and Denies sore throat Card Denies chest pain, Denies syncope, Denies rapid heart rate and Denies dyspnea Resp Denies cough and Denies dyspnea GI Denies change in stool character, Reports constipation, Denies diarrhea, Denies nausea and Denies vomiting Denies dysuria and Denies urinary frequency Neuro Reports Normal hearing present, Denies confusion, Denies dizziness, Denies syncope and Denies weakness Psych Denies confusion Physical exam (Primary Care) Vital Signs: Last Vital Signs Pulse 78 09/24/23 14:54 BP 142/90 H 09/24/23 14:54 Pulse Ox 97 09/24/23 14:54 Oxygen Delivery Method Room Air 09/24/23 14:54 BMI result Body Mass Index 26.7 Tobacco/Smoking Status: Tobacco use Status Tobacco use date assessed 09/24/23 09/24/23 15:00 Patient Tobacco Use Status Never used Tobacco 09/24/23 15:11 e-Cigarette/Vaping Use Never Used 09/24/23 15:11 PHQ-9: PHQ-9 Score PHQ-9: Total score 0 09/24/23 15:08 Depression Screening Interpretation: Negative Thrive Assessment: Date of Thrive Assessment Date Thrive assessed 09/24/23 09/24/23 15:00 Currently or been in a relationship where the following occur: no concerns reported Const General: No confusion Orientation/consciousness: No confusion HENMT Head: Yes normocephalic Ears: external ears normal and TM's normal bilaterally Face and sinus: Yes normal facial exam Mouth: moist mucous membranes Throat: Yes tonsils normal Eyes Conjunctivae: conjunctivae normal Pupils: Equal, round and reactive pupils present and Pupil accommodation reflex normal Direct Ophthalmoscopy: normal light reflex Neck Neck: No lymphadenopathy Thyroid: Thyroid normal Chest Chest palpation & inspection: normal inspection of the chest Resp Effort & Inspection: normal respiratory effort and no audible wheezes Auscultation: clear to auscultation bilaterally, no crackles, no wheezes and lung sounds not diminished Cardio Rate: regular rate Rhythm: regular rhythm Peripheral pulses: radial pulses present and dorsalis pedis present GI Palpation (GI): no masses Auscultation: normal bowel sounds and normoactive bowel sounds Rectal Exam - Male: Yes deferred Skin General skin exam: no rashes or lesions noted Rashes: no rashes Neuro General: No confusion Cranial nerves: Yes Equal, round and reactive pupils present and Yes Normal hearing present Cognition (Neuro): normal cognition Gait exam (Neuro): Normal gait present Motor exam (neuro): 5/5 motor strength present throughout Deep tendon reflexes (DTR's): Right brachioradialis reflex intensity grade: 2+, Left brachioradialis reflex intensity grade: 2+, Right patellar reflex intensity grade: 2+ and Left patellar reflex intensity grade: 2+ Extrem General: No edema Immunizations tetanus-diphtheria toxoids-Td 2 Lf unit-2 Lf unit/0.5 mL IM suspension Performing Provider: Suzi Page MD [facility] Administered by: RUPESH Suarez on 09/24/23 15:30 Dose Route Admin Location Dispensed Lot Number Expiration Date [employer]DC [employer] 0.5 mL IM Left Deltoid 0.5 mL [id number] 09/24/23 [address]-5 [employer] VIS Given Date VIS Provided VIS Publication Date 09/24/23 Single Vaccine 21 Eligibility Eligibility Date Funding Source Not VFC Eligible 09/24/23 State funds Assessment and Plan Assessment & Plan (1) Annual physical exam: Code(s): Z00.00 - Encounter for general adult medical examination without abnormal findings (2) Blood pressure elevated without history of HTN: Code(s): R03.0 - Elevated blood-pressure reading, without diagnosis of hypertension Plan: Advised patient to continue to monitor blood pressure (3) Hypercholesterolemia: Code(s): E78.00 - Pure hypercholesterolemia, unspecified Plan: Avoid fried foods, chicken skin, eggs, butter margarine, pastries and meat. Be it pork or beef they have a lot of cholesterol LDL goal of less than 130 and triglyceride of less than 150 (4) BPH w urinary obs/LUTS: Code(s): N40.1 - Benign prostatic hyperplasia with lower urinary tract symptoms; N13.8 - Other obstructive and reflux uropathy Plan: Stable (5) Anemia: Code(s): D64.9 - Anemia, unspecified Plan: Continuing to monitor Orders: Orders Td State Immunization Today Z23 - Encounter for immunization Coding Level of Care Code Est Pt Prev Care 40-64y(61011) Diagnoses Annual physical exam Z00.00 Blood pressure elevated without history of HTN R03.0 Hypercholesterolemia E78.00 BPH w urinary obs/LUTS N40.1; N13.8 Anemia D64.9 Additional Codes TIMI-7 Assessment Billing - TIMI-7 Assessment Tool: TIMI-7 Assessment 45274 ([id number])
[2023-09-24 14:54] VITALS: BP 142/90; PULSE 78; O2SAT 97; BMI 26.7
== END 2023-09-24 15:31 | disposition home or self-care (01) ==
PROVIDERS: PCP Internal Medicine; Visit Provider Internal Medicine
DX: Z00.00 Encounter for general adult medical examination without abnormal findings (principal); R03.0 Elevated blood-pressure reading, without diagnosis of hypertension; E78.00 Pure hypercholesterolemia, unspecified; N40.1 Benign prostatic hyperplasia with lower urinary tract symptoms; N13.8 Other obstructive and reflux uropathy; D64.9 Anemia, unspecified; Z23 Encounter for immunization
CPT/HCPCS: 90471; 90714; 99396

== ENCOUNTER 2024-01-28 15:07 | Outpatient (REF) | payer BC, SELFPAY ==
[2024-01-28 16:15] LABS: PSA,Total (Free>4and<10) 2.44 ng/mL (0.00-4.00)
== END 2024-01-28 15:08 | disposition home or self-care (01) ==
LOC: HO.LAB 15:07
PROVIDERS: PCP Internal Medicine; Visit Provider Urology
DX: N40.1 Benign prostatic hyperplasia with lower urinary tract symptoms (principal); N13.8 Other obstructive and reflux uropathy; Z12.5 Encounter for screening for malignant neoplasm of prostate
CPT/HCPCS: 36415; 84153

== ENCOUNTER 2024-02-01 14:40 | Outpatient (AMB) | payer BC, SELFPAY ==
--- NOTE | 2024-02-01 14:46 | A.OFFVIS_ITS ---
Intake Visit Reasons: 1Y Follow Up-PVR/PSA(SET) Intake Note: Patient is Present for PVR/PSA Urology Med: None Antibiotic Allergy: None Blood Thinner: None Last PVR: 6 Todays PVR: 0 Box Brander Required: No Accompanied by: Self / Same As Patient Allergies cinnamon Allergy (Unknown, Verified 02/01/24 14:48) rash pravastatin Adverse Reaction (Intermediate, Verified 02/01/24 14:48) drowsiness rosuvastatin Adverse Reaction (Intermediate, Verified 02/01/24 14:48) myalgia simvastatin Adverse Reaction (Intermediate, Verified 02/01/24 14:48) epigastric pain cologne Allergy (Unknown, Uncoded 02/01/24 14:48) redness and itching spices Allergy (Unknown, Uncoded 02/01/24 14:48) redness and itching HPI Comments Details: Carlos RUTLEDGE is a very pleasant [facility] male. He is a patient of Dr Page. He is seen for the following urologic conditions - lower urinary tract symptoms - elevated PSA Minimal urinary issues PSA stable 2.4 Has stopped finasteride Twelve month follow-up Elevated PSA/Abnormal RADHA: Finished finasteride previously He presents for further evaluation of elevated PSA Current management is medication with 5AR. Laboratory investigations include a total PSA evaluation August 2016 6.2, 6.0, free PSA 8% 02/28 PSA 8.5 - persistent elevation 09/29 PSA 7.4, 09/30 PSA 8.2, 04/01 4.3 10/31 4.9 (stopped finasteride a month ago), 07/04 1.9, 02/01 1.8, 02/02 1.7, 09/03 2.0. 01/03 2.2, 10/05 1.7, 02/04 2.4 Imaging investigations include a transrectal ultrasound Yes Date 09/28 Prostate Volume 55 a prostate MRI Yes 03/31 45gm No areas of diffusion uptake Individualized Prostate Cancer Risk Calculator >10% high risk - PCPT 30% high risk , Discussion regarding TRUS biopsy performed. A TRUS biopsy has been performed and is negative 09/28 multiple cores of chronic prostatitis Therapeutic plan will be continued surveillance PFS Medical History Chronic prostatitis High prostate specific antigen (PSA) Hypercalcemia Colon cancer screening Vitamin D deficiency Hypercalcemia Hypercholesterolemia Surgical History H/O colonoscopy S/P TURP (status post transurethral resection of prostate) Family History Father No problems noted. Mother Stroke Sister Breast cancer Hypertension Brother Diabetes Social History Housing: Apartment Alcohol intake: current Comment: wine once Q 6 months Patient Tobacco Use Status: Never used Tobacco e-Cigarette/Vaping Use: Never Used Second Hand Smoke Exposure: No service: No Current occupational status: employed Cognitive needs: No Hearing needs: No Vision needs: Yes Review of Systems Const Denies chills and Denies fever(s) Card Reports no additional complaints and Denies syncope Resp Denies cough GI Denies abdominal pain and Denies heartburn Reports as per HPI and Denies change in libido Neuro Denies syncope Psych Denies change in libido Endo Denies change in libido Physical Exam Const General: cooperative, healthy appearing, comfortable and no acute distress Orientation/consciousness: patient oriented x3 HEENT Face and sinus: Yes normal facial exam Mouth: moist mucous membranes Neck Neck: Yes normal visual inspection, Yes full ROM and Yes trachea midline Chest Chest palpation & inspection: normal inspection of the chest Resp Effort & Inspection: normal respiratory effort, able to speak in complete sentences and no respiratory distress GI Inspection: Yes normal to inspection Back/Spine/Pelvis Cervical Spine: normal cervical lordosis Thoracic/Lumbar Spine: thoracic and lumbar spine normal to inspection Skin General skin exam: no rashes or lesions noted Neuro General: patient oriented x3, gait normal, tone normal and moves all extremities Extrem General: Yes normal to inspection and Yes capillary refill normal Office Procedures Post Void Residual Post Residual Void Post Void Residual (PVR): 0 10436-Dsfi Void Residual by ultrasound Assessment & Plan Assessment & Plan (1) BPH w urinary obs/LUTS: Code(s): N40.1 - Benign prostatic hyperplasia with lower urinary tract symptoms; N13.8 - Other obstructive and reflux uropathy Category: Medical Plan Twelve month follow-up PSA Orders: Orders AMB Post Void Residual by ultrasound 02/01/24 N40.1 - Benign prostatic hyperplasia with lower urinary tract symptoms, N13.8 - Other obstructive and reflux uropathy Prostate Specific Antigen 364 Days N40.1 - Benign prostatic hyperplasia with lower urinary tract symptoms, N13.8 - Other obstructive and reflux uropathy Patient Instructions: Imaging studies, laboratory and physical exam results were discussed and reviewed in detail. No major barriers to patient understanding were identified. An opportunity to ask questions regarding the treatment plan was provided. All questions were answered. The patient expressed understanding and agreement with the above treatment plan. The patient is aware they should contact our office by phone for worsening of their current condition or the appearance of new urologic symptoms. Compliance is encouraged with any medications and followup testing that is ordered. It is a privilege to participate in the urologic care of your patient. If you have any questions or concerns regarding treatment for the above conditions, or other urologic issues, please do not hesitate to contact me. The office telephone contact is [phone]. This note is constructed using voice recognition software. While every effort has been made to ensure accuracy earth burner errors may have been included. Yours sincerely, Dr Jessee Agosto MD, [facility] - Urology Providers of Expert, Compassionate Care for the Genitourinary System Coding Level of Care Code Est Pt Level 4 (37802) Diagnoses BPH w urinary obs/LUTS N40.1; N13.8 CPT Codes Post Residual Void - PVR CPT Code: 92701-Oski Void Residual by ultrasound ([id number])
== END 2024-02-01 15:13 | disposition home or self-care (01) ==
PROVIDERS: PCP Internal Medicine; Visit Provider Urology
DX: N40.1 Benign prostatic hyperplasia with lower urinary tract symptoms (principal); N13.8 Other obstructive and reflux uropathy
CPT/HCPCS: 99214

== ENCOUNTER → 2024-02-01 14:40 | Outpatient (BNVA) | payer BC, SELFPAY | PROVIDERS: PCP Internal Medicine; Visit Provider Urology | DX: R97.20 Elevated prostate specific antigen [PSA] (principal); N40.1 Benign prostatic hyperplasia with lower urinary tract symptoms; N13.8 Other obstructive and reflux uropathy | CPT/HCPCS: 51798 ==

== ENCOUNTER 2024-09-28 15:07 | Outpatient (REF) | payer BC, SELFPAY ==
[2024-09-28 16:05] LABS: Basophils Percent Auto 0.8 % (0-2); Eosinophils Absolute Auto 0.1 X10*3/uL (0.0-0.4); Eosinophils Percent Auto 2.7 % (0-4); Hematocrit 41.1 % (42.0-52.0); Hemoglobin 13.8 g/dl (14.0-18.0); Imm Gran Abs Auto 0.01 X10*3/uL (0.00-0.03); Imm Gran Pct Auto 0.2 % (0.0-0.4); Immature Retic Fraction 15.3 % (2.3-13.4); Lymphocytes Percent Auto 61.2 % (20-40); MANUAL DIFF FLAG SCAN; Mean Corpuscular HGB Conc 33.6 g/dl (31.0-36.0); Mean Corpuscular Hemoglobin 29.1 pg (27.0-33.0); Mean Corpuscular Volume 86.5 fL (80.0-98.0); Mean Platelet Volume 10.5 fL (9.4-12.4); Monocytes Absolute Auto 0.5 X10*3/uL (0.1-1.2); Monocytes Percent Auto 9.5 % (2-11); Neutrophils Absolute Auto 1.2 x10*3/uL (2.0-8.3); Neutrophils Percent Auto 25.6 % (45-73); Platelet Count 278 X10*3/uL (160-400); Red Blood Count 4.75 X10*6/uL (4.60-5.80); Red Cell Distribution Width 13.6 % (11.0-16.0); Retic HGB Equivalent 32.4 pg (30.0-35.0); Reticulocyte Percent 1.4 % (0.5-1.8); Reticulocytes Absolute 0.067 X10*6/uL (0.026-0.095); SCAN SMEAR FLAG 1; White Blood Count 4.9 X10*3/uL (4.8-10.8)
[2024-09-28 16:33] LABS: Alanine Aminotransferase 22 U/L (0-40); Albumin Level 4.2 g/dL (3.5-5.0); Anion Gap 10 (12-20); Aspartate Amino Transferase 28 U/L (5-37); Bilirubin Total 0.7 mg/dL (0.0-1.0); Blood Urea Nitrogen 12 mg/dL (9-16); Calcium 10.2 mg/dL (8.4-10.2); Carbon Dioxide 28 mmol/L (22-29); Chloride 107 mmol/L (96-108); Cholesterol 248 mg/dL (<200); Estimated Glomerular Filt Rate > 60; Glucose Random 88 mg/dL (60-115); HDL Cholesterol 39 mg/dL (>40); Iron 116 mcg/dL (45-160); LDL Cholesterol Calculated 192 mg/dL (<100); Percent Iron Saturation 35 % (15-50); Potassium 4.6 mmol/L (3.3-5.1); Sodium 140 mmol/L (135-145); Total Iron Binding Capacity 334 mcg/dL (228-428); Total Protein 7.4 g/dL (6.5-8.0); Triglycerides 87 mg/dL (<150); Unsaturated Iron Binding 218 ug/dL
[2024-09-28 16:42] LABS: Alkaline Phosphatase 78 U/L (39-117)
[2024-09-28 16:53] LABS: Folate 14.2 ng/mL (> or = 4.0); Prostate Specific Antigen Scr 2.15 ng/mL (<0.05-4.0); Vitamin B12 881 pg/mL (200-900)
[2024-09-28 16:55] LABS: Ferritin 45 ng/mL (20-250); Free T4 (Free Thyroxine) 0.93 ng/dL (0.71-1.85)
[2024-09-28 17:10] LABS: SLIDE REVIEW VERIFIED
--- OUTSIDE RECORDS SUMMARY | 2024-09-28 17:52 | XMS_ITS | Patient Health Record ---
Author Organization [facility] Address [address] [place] [id number] Care Team Providers Care Field Cane Scaler Name Role Phone Po Suzi PAEZ Primary Care Provider Jose Durant [phone] Allergies No Known Allergies Reason For Referral No Information Medications Medication SIG (Take, Route, Frequency, Duration) Notes Start Date End Date Status Zinc 50 MG 1 tablet Orally Once a day for 30 day(s) Active Vitamin D 25 MCG (1000 UT) 1 tablet Oral ly Once a day for 30 day(s) Active Ezetimibe 10 MG TAKE 1 TABLET BY GRAZYNA TH EVERY DAY Oral for 90 Active Problems Problem Type SNOMED Code ICD Code Onset Dates Problem Status W/U Status Risk Notes Problem Diverticular disease of colon (340455692) Diverticulosis of large intestine without perforation or abscess without bleeding (K57.30) Active confirmed Problem 577892670 Screen for colon cancer (Z12.11) Active confirmed Problem [id number] Preprocedural examination (Z01.818) Active confirmed Plan Of Treatment Future Test Test Name Order Date COLONOSCOPY 09/08/2012 COLONOSCOPY 02/04/2023 Insurance Providers Payer Name Payer Address Payer Phone Subscriber Number Group Number Insured Name Patient Relationship to Insured Coverage Start Date Coverage End Date [facility] [address] [place], [place] [id number] BLANCHE RUTLEDGE Self - patient is the insured Medical (General) History Medical History History ICD Code Denies [place],DM,CVA,Lung disease,renal dise ase hypercholesterolemia Negative screening colonoscopy in 2012 Surgical History Surgery Date(Month/Year)
--- OUTSIDE RECORDS SUMMARY | 2024-09-28 17:52 | XMS_ITS ---
Author Organization [facility] Address [address] [place] [id number] Care Team Providers Care Software Clerk Name Role Phone Suzi Page MD Primary Care Provider Jose Durant [phone] REASON FOR VISIT screening Problems Problem Type SNOMED Code ICD Code Onset Dates Problem Status W/U Status Risk Notes Problem Diverticular disease of colon (204501039) Diverticulosis of large intestine without perforation or abscess without bleeding (K57.30) Active confirmed Encounters Encounter Location Date Provider [place] [facility] [address] [place] [phone] 05/21/2023 Jose Ramirez Encounter for scre ening colonoscopy Z12.11 ; Diverticulosis of large intestine without perforation or abscess without bleeding K57.30 and Other hemorrhoids K64.8 Assessments Encounter Date Diagnosis (ICD Code) Assessment Notes Treatment Notes Treatment Clinical Notes Section Notes 05/21/2023 Encounter for screening colonoscopy (ICD-10 - Z12.11) 05/21/2023 Diverticulosis of large intestine without perforation or abscess without bleeding (ICD-10 - K57.30) 05/21/2023 Other hemorrhoids (ICD-10 - K64.8) Plan Of Treatment No Information Progress Notes * BLANCHE RUTLEDGEDOB:1960 (64 yo M)Acc No.[id number]:05/21/2023 COLON WITH MAC Patient:?BLANCHE RUTLEDGE Provider:?Jose Ramirez MD :1960???Age:62 Y???Sex:Male Jalil e:05/21/2023 Address:[address] [place] [address] Pcp:Suzi Page MD Subjective: * Chief Complaints: * ???1. Screening. * Medical History:? Objective: * Vitals:? Assessment: * Assessment: 1.?Encounter for screening c olonoscopy - Z12.11 (Primary)???2.?Diverticulosis of large intestine without perforation or abscess without bleeding - K57.30???3.?Other hemorrhoids - K64.8??? Plan: * Treatment: * Procedure Codes:?59098 DIAGN OSTIC COLONOSCOPY, Modifiers: 33 * * The named appointment provid er may or may not be the originator of this progress note, and it is not deemed complete until electronically signed by the appointment provider. Sign off status: Pending * Provider:?Jose Ramirez MD Date:? 023 Generated for Faye duval/Marva/Erenitting on:?09/28/2024 05:52 PM EDT
== END 2024-09-28 15:08 | disposition home or self-care (01) ==
LOC: HO.LAB 15:07
PROVIDERS: PCP Internal Medicine; Visit Provider Internal Medicine
DX: E78.00 Pure hypercholesterolemia, unspecified (principal)
CPT/HCPCS: 36415; 80053; 80061; 82607; 82728; 82746; 83540; 84153; 84439; 84443; 85025; 85045

== ENCOUNTER 2024-09-29 12:54 | Outpatient (AMB) | payer BC, SELFPAY ==
--- NOTE | 2024-09-29 13:07 | A.OFFPC_ITS ---
Vital Signs 09/29/24 13:09 Height 6 ft 2 in Weight 207 lb 2 oz BMI 26.6 BP 120/68 Blood Pressure Location Lt brachial Position Sitting Pulse 70 Pulse Source Pulse Oximeter Temp 97.1 F Temp Source Temporal Artery Scan Pulse Oximetry (%) 98 Oxygen Delivery Method Room Air Intake Visit Reasons: PE Intake Note: Patient is here today for a physical. 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 per policy Accompanied by: Self / Same As Patient Allergies pravastatin Adverse Reaction (Intermediate, Verified 09/29/24 13:08) drowsiness rosuvastatin Adverse Reaction (Intermediate, Verified 09/29/24 13:08) myalgia simvastatin Adverse Reaction (Intermediate, Verified 09/29/24 13:08) epigastric pain cologne Allergy (Unknown, Uncoded 09/29/24 13:08) redness and itching Medication List - Last Reconciled 09/29/24 by Suzi Page MD [Men's Multi-Vitamin ] Tobacco use date assessed: 09/29/24 Fall risk assessment: No Falls in past year Last assessed Fall Risk: 09/29/24 Dental Screening Dental Screen Date: 09/29/24 Did you have a dental visit in the last 12 months?: Yes Did you have a dental problem in the last 6 months where you did not have access to dental care?: No Was dental information given to patient?: Patient has dentist [facility] Medical History Chronic prostatitis High prostate specific antigen (PSA) Hypercalcemia Colon cancer screening Vitamin D deficiency Hypercalcemia Hypercholesterolemia Surgical History H/O colonoscopy S/P TURP (status post transurethral resection of prostate) Family History (Updated 09/29/24 @ 13:39 by Suzi Page MD) Father No problems noted. Mother Stroke Sister Breast cancer Hypertension Brother Diabetes Maternal Uncle Prostate cancer Social History (Updated 09/29/24 @ 13:40 by Suzi Page MD) Housing: Apartment Alcohol intake: current Comment: wine once Q 6 months. QOD wine 1-2 glasses Patient Tobacco Use Status: Never used Tobacco e-Cigarette/Vaping Use: Never Used Second Hand Smoke Exposure: No service: No Current occupational status: employed Cognitive needs: No Hearing needs: No Vision needs: Yes Questionnaire PHQ-9 Over the last 2 weeks, how often have you been bothered by any of the following problems? 1. Little interest or pleasure in doing things: not at all 2. Feeling down, depressed, or hopeless: not at all 3. Trouble falling or staying asleep, or sleeping too much: not at all 4. Feeling tired or having little energy: not at all 5. Poor appetite or overeating: not at all 6. Feeling bad about yourself - or that you are a failure or have let yourself or your family down: not at all 7. Trouble concentrating on things, such as reading the newspaper or watching television: not at all 8. Moving or speaking so slowly that other people could have noticed. Or the opposite - being so fidgety or restless that you have been moving around a lot more than usual: not at all 9. Thoughts that you would be better off or of hurting yourself in some way: not at all Total score: 0 Depression Screening Interpretation: Negative Depression Screening Done: Yes Source: Developed by Drs. Jose Barreto, Vicenta Bashir, Luis Morton and colleagues, with an educational radha from [employer]. Thrive Questionnaire Date Thrive assessed: 09/29/24 I am a: Patient What is your living situation today?: I have a steady place to live Within the past 12 months, did the food you bought not last and you didn't have the money to get more?: I choose not to answer this question Within the past 12 months, did you worry whether your food would run out before you got money to buy more?: I choose not to answer this question Do you have trouble paying for medicines?: No Do you have trouble getting transportation to medical appointments?: No Do you have trouble paying your heating and electricity bill?: No Do you have trouble taking care of your child, family member or friend?: No Do you have trouble with day-to-day activities such as bathing, preparing meals, shopping, managing finances, etc.?: No Are you currently unemployed and looking for a job?: No Are you interested in more education?: No Please select the resources that you would like help with: None Currently or been in a relationship where the following occur: I choose not to answer THRIVE Score: 0 AUDIT C Alcohol Use Questionnaire (AUDIT-C) 1. How often do you have a drink containing alcohol?: Monthly or less 2. How many drinks containing alcohol do you have on a typical day when you are drinking?: 1 or 2 3. How often do you have six or more drinks on one occasion?: Never Total Score: 1 TIMI-7 AMB Questionnaire TIMI-7 Date TIMI - 7 assessed: 09/29/24 Feeling nervous, anxious, or on edge: 0 = Not at all Not being able to stop or control worryin = Not at all Worrying too much about different things: 0 = Not at all Trouble relaxin = Not at all Being so restless that it is hard to sit still: 0 = Not at all Becoming easily annoyed or irritable: 0 = Not at all Feeling afraid as if something awful might happen: 0 = Not at all Total TIMI-7 score (0-4 normal; 5-9 mild; 10-14 moderate; 15-21 severe): 0 Source: Developed by Drs. Jose Barreto, Vicenta Bashir, Luis Morton and colleagues, with an educational radha from [employer]. Review of Systems Const Denies poor appetite and Denies weakness Eyes Denies no additional complaints ENT Reports Normal hearing present, Denies dizziness, Denies nasal congestion, Denies tinnitus and Denies sore throat Card Denies chest pain, Denies syncope, Denies rapid heart rate and Denies dyspnea Resp Denies cough and Denies dyspnea GI Denies change in stool character, Reports constipation, Denies diarrhea, Denies nausea and Denies vomiting Denies dysuria and Denies urinary frequency Neuro Reports Normal hearing present, Denies confusion, Denies dizziness, Denies syncope and Denies weakness Psych Denies confusion Physical exam (Primary Care) Vital Signs: Last Vital Signs Temp 97.1 F 09/29/24 13:09 Pulse 70 09/29/24 13:09 BP 120/68 09/29/24 13:09 Pulse Ox 98 09/29/24 13:09 Oxygen Delivery Method Room Air 09/29/24 13:09 BMI result Body Mass Index 26.6 Tobacco/Smoking Status: Tobacco use Status Tobacco use date assessed 09/29/24 09/29/24 13:13 Patient Tobacco Use Status Never used Tobacco 09/29/24 13:13 e-Cigarette/Vaping Use Never Used 09/29/24 13:13 PHQ-9: PHQ-9 Score PHQ-9: Total score 0 09/29/24 13:13 Depression Screening Interpretation: Negative Thrive Assessment: Date of Thrive Assessment Date Thrive assessed 09/29/24 09/29/24 13:13 Currently or been in a relationship where the following occur: I choose not to answer Const General: No confusion Orientation/consciousness: No confusion HENMT Head: Yes normocephalic Ears: external ears normal and TM's normal bilaterally Face and sinus: Yes normal facial exam Mouth: moist mucous membranes Throat: Yes tonsils normal Eyes Conjunctivae: conjunctivae normal Pupils: Equal, round and reactive pupils present and Pupil accommodation reflex normal Direct Ophthalmoscopy: normal light reflex Neck Neck: No lymphadenopathy Thyroid: Thyroid normal Chest Chest palpation & inspection: normal inspection of the chest Resp Effort & Inspection: normal respiratory effort and no audible wheezes Auscultation: clear to auscultation bilaterally, no crackles, no wheezes and lung sounds not diminished Cardio Rate: regular rate Rhythm: regular rhythm Peripheral pulses: radial pulses present and dorsalis pedis present GI Palpation (GI): no masses Auscultation: normal bowel sounds and normoactive bowel sounds Rectal Exam - Male: Yes deferred Skin General skin exam: no rashes or lesions noted Rashes: no rashes Neuro General: No confusion Cranial nerves: Yes Equal, round and reactive pupils present and Yes Normal hearing present Cognition (Neuro): normal cognition Gait exam (Neuro): Normal gait present Motor exam (neuro): 5/5 motor strength present throughout Deep tendon reflexes (DTR's): Right brachioradialis reflex intensity grade: 2+, Left brachioradialis reflex intensity grade: 2+, Right patellar reflex intensity grade: 2+ and Left patellar reflex intensity grade: 2+ Extrem General: No edema Coding Level of Care Code Est Pt Prev Care 40-64y(21682) Diagnoses Annual physical exam Z00.00 Hypercholesterolemia E78.00 Anemia D64.9 Assessment & Plan Assessment & Plan (1) Annual physical exam: Code(s): Z00.00 - Encounter for general adult medical examination without abnormal findings Category: Medical Plan: Patient is advised to eat healthy, keep well hydrated, keep active and have adequate sleep. (2) Hypercholesterolemia: Code(s): E78.00 - Pure hypercholesterolemia, unspecified Category: Medical Plan: Avoid fried foods, chicken skin, eggs, butter margarine, pastries and meat. Be it pork or beef they have a lot of cholesterol LDL goal of less than 130 and triglyceride of less than 150 (3) Anemia: Code(s): D64.9 - Anemia, unspecified Category: Medical Plan: Continue to monitor. Stable Plan History of Present Illness The patient is a 64-year-old male presenting for an annual physical examination. He has a history of hypercholesterolemia, benign prostatic hyperplasia (BPH), and mild anemia. Cholesterol levels have been a chronic issue, with recent data showing total cholesterol at 248 mg/dL and LDL at 192 mg/dL, which are significantly elevated. He experienced adverse reactions to pravastatin, rosuvastatin, and simvastatin and has discontinued finasteride. Blood pressure readings are controlled. Dietary measures include limited red meat, fried foods, and processed sugars, pairing high consumption of olives, nuts, and olive oil. His only medication includes multivitamins. Social history includes increased alcohol consumption to one or two glasses of red wine every other night, an increase from his previous habits, while denying smoking or drug use. Family history is noteworthy for maternal stroke, half- sister with breast cancer, and a maternal uncle who from prostate cancer. The patient reports overall stability in health, though heartburn occurs with late-night nut consumption but remains infrequent. No acute symptoms such as chest pain, dizziness, or fever have been reported. Health Maintenance - Monitoring of cholesterol levels, with a goal to reduce LDL to less than 130 mg/dL and triglycerides below 150 mg/dL - Continued blood pressure monitoring due to history of well-maintained levels - Advised increasing physical activity to augment cholesterol management - Annual colonoscopy was last performed in May 2023 - Consideration for shingles vaccination due to age-related risk - Tetanus vaccination is up-to-date Social History - Alcohol consumption: Approximately one to two glasses of red wine every other night - Diet: Limited red meat, fried foods, and processed sugars; high consumption of olives, nuts, almonds, and olive oil - Physical activity: Not currently engaged in regular exercise - Family history: Mother with stroke, half-sister with breast cancer, maternal uncle with prostate cancer - No recreational drug use or smoking - Lives with the family, no mention of occupational status Review of Systems - Cardiovascular: Denies chest pain - Respiratory: Denies shortness of breath - Gastrointestinal: Reports occasional heartburn; denies nausea, vomiting, or swallowing difficulties - Genitourinary: Denies difficulty urinating; reports stable bowel movements - Neurological: Denies dizziness or syncope - Musculoskeletal: Reports occasional knee and calf pain - General: Denies fever - Head and Neck: Denies hearing or swallowing issues - Skin: Denies lumps or bumps Physical Exam General: Cooperative, healthy appearing, comfortable, no acute distress and well developed Orientation: Patient oriented x3 Limitations: No limitations Head: Normal to inspection Ears: Hearing grossly normal bilaterally Nose: Normal external nose present Face and sinus: Normal facial exam Eyes: Appearance normal, both eyes and all related structures Neck: Normal visual inspection and Yes full ROM Respiratory: Normal respiratory effort and able to speak in complete sentences. Clear to auscultation bilaterally Cardiovascular: Regular rate and rhythm. Normal S1 and S2 GI: Normal to inspection. Soft to palpation and nontender Skin: No rashes or lesions noted Neuro: Patient oriented x3 Extremities: Normal to inspection, except for occasional sharp pain in the leg and knee issues from previous soccer injury. Pain in the calf noted, possibly a muscle strain. Results - Lab Tests: - Total cholesterol: 248 mg/dL (goal <200 mg/dL) - LDL: 192 mg/dL (goal <130 mg/dL) - Anemia present with hemoglobin at 13.8 g/dL - Liver and renal function tests within normal limits - PSA: 2.15 ng/mL - Other electrolyte levels, blood sugar, B12, folic acid, and thyroid functions were normal Plan The plan for managing hypercholesterolemia involves initiating treatment with ezetimibe to mitigate risks associated with high LDL levels, as statins have been previously intolerable. The benefits of Zetia were discussed, specifically that it is not a statin and may be better tolerated, with possible mild gastrointestinal side effects as a consideration. Follow-up laboratory testing is recommended in three months to assess the efficacy of the intervention. The patient is also advised to increase physical activity as this may improve cholesterol levels. For anemia, since it has been stable, no additional intervention is presently required, but the condition will be monitored for any changes. The patient?s adherence to a healthy diet and increased physical activity was emphasized as part of overall cardiovascular risk management. Patient was informed and verbally consented to the use of an ambient scribe for clinic note documentation during this visit. Discussion Notes During the consultation, I advised the patient on the significance of managing his elevated cholesterol levels to prevent cardiovascular events, given his family history and current stressors. We thoroughly discussed the role of Zetia (ezetimibe) as an alternative to statins, focusing on its benefits, potential side effects, and the absence of muscle-related side effects typically seen with statins. Importance was placed on regular aerobic exercise as a non- pharmacological approach to help manage cholesterol. We agreed upon reevaluating his lipid profile in three months to gauge the response to ezetimibe. I recommended increasing his physical activity regimen and raised awareness of potential dietary contributors to his condition. Continual monitoring of his prostate history and anemia was also discussed, given their stable status. Preventative measures, including consideration for the shingles vaccine, were outlined as additional health maintenance. Patient Instructions - Start taking the medication Zetia (ezetimibe) as prescribed for cholesterol management. - Schedule and attend follow-up labs in three months. - Increase physical activity to at least moderate cardiovascular exercise several times a week. - Maintain a heart-healthy diet, limiting foods with high LDL impacts. - Monitor for any side effects from the new medication and report them. - Contact the office with any concerns or significant health changes. - Consider getting the shingles vaccine from the pharmacy. - Continue regular follow-ups for ongoing monitoring of chronic conditions. Orders: Orders Comprehensive Met. Panel 3 Months E78.00 - Pure hypercholesterolemia, unspecified Lipid Panel 3 Months E78.00 - Pure hypercholesterolemia, unspecified Medications: New ezetimibe (Zetia) 10 mg PO DAILY 90 tabs 1RF E78.00 - Pure hypercholesterolemia, unspecified
[2024-09-29 13:09] VITALS: BP 120/68; PULSE 70; TEMP 36.2; O2SAT 98; BMI 26.6
--- OUTSIDE RECORDS SUMMARY | 2024-09-29 13:28 | XMS_ITS ---
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 Name Role Phone Suzi Page MD Primary Care Provider Jose Durant [phone] REASON FOR VISIT screening Problems Problem Type SNOMED Code ICD Code Onset Dates Problem Status W/U Status Risk Notes Problem Diverticular disease of colon (599912311) Diverticulosis of large intestine without perforation or abscess without bleeding (K57.30) Active confirmed Encounters Encounter Location Date Provider Diagnosis [facility] [address] [place] [phone] 05/21/2023 Jose Ramirez Encounter for scre ening [...] Notes * BLANCHE RUTLEDGEDOB:1960 (64 yo M)Acc No.[id number]:05/21/2023 COLON WITH MAC Patient:?BLANCHE RUTLEDGE Provider:?Jose Ramirez MD :1960???Age:62 Y???Sex:Male Jalil e:05/21/2023 Address:[address] [place] [id number] Pcp:Suzi Page MD Subjective: * Chief Complaints: * ???1. Screening. * Medical History:? Objective: * Vitals:? Assessment: * Assessment: 1.?Encounter for screening c olonoscopy - Z12.11 (Primary)???2.?Diverticulosis of large intestine without perforation or abscess without bleeding - K57.30???3.?Other hemorrhoids - K64.8??? Plan: * Treatment: * Procedure Codes:?95101 DIAGN OSTIC COLONOSCOPY, Modifiers: 33 * * The named appointment provid er may or may not be the originator of this progress note, and it is not deemed complete until electronically signed by the appointment provider. Sign off status: Pending * Provider:?Jose Ramirez MD Date:? 023 Generated for Faye duval/Marva/Erenitting on:?09/29/2024 01:28 PM EDT
--- OUTSIDE RECORDS SUMMARY | 2024-09-29 13:28 | XMS_ITS | Patient Health Record ---
Author Organization [facility] Address [address] [place] [id number] Care Team Providers Care Groundsman Name Role Phone Po Suzi PAEZ Primary Care Provider Jose Durant [phone] Allergies No Known Allergies Reason For Referral [...] Risk Notes Problem Diverticular disease of colon (766985872) Diverticulosis of large intestine without perforation or abscess without bleeding (K57.30) Active confirmed Problem [id number] Screen for colon cancer (Z12.11) Active confirmed Problem [id number] Preprocedural examination (Z01.818) Active confirmed Plan Of Treatment Future Test Test Name Order Date COLONOSCOPY 09/08/2012 COLONOSCOPY 02/04/2023 Insurance Providers Payer Name Payer Address Payer Phone Subscriber Number Group Number Insured Name Patient Relationship to Insured Coverage Start Date Coverage End Date [facility] [address] [place], [place] [id number] BLANCHE RUTLEDGE Self - patient is the insured Medical (General) History Medical History History ICD Code Denies NH,DM,CVA,Lung disease,renal dise ase hypercholesterolemia Negative screening colonoscopy in 2012 Surgical History Surgery Date(Month/Year)
== END 2024-09-29 14:02 | disposition home or self-care (01) ==
LOC: HO.HMCH 12:55
PROVIDERS: PCP Internal Medicine; Visit Provider Internal Medicine
DX: Z00.00 Encounter for general adult medical examination without abnormal findings (principal); E78.00 Pure hypercholesterolemia, unspecified; D64.9 Anemia, unspecified

== ENCOUNTER → 2024-09-29 12:54 | Outpatient (BNVA) | payer BC, SELFPAY | PROVIDERS: PCP Internal Medicine; Visit Provider Internal Medicine | DX: Z13.89 Encounter for screening for other disorder (principal) ==

== ENCOUNTER 2025-03-22 08:39 | Outpatient (REF) | payer BC, SELFPAY ==
[2025-03-22 09:56] LABS: Prostate Specific Antigen 3.17 ng/mL (<0.05-4.0)
== END 2025-03-22 08:40 | disposition home or self-care (01) ==
LOC: HO.LAB 08:39
PROVIDERS: PCP Internal Medicine; Visit Provider Urology
DX: N40.1 Benign prostatic hyperplasia with lower urinary tract symptoms (principal); N13.8 Other obstructive and reflux uropathy; Z12.5 Encounter for screening for malignant neoplasm of prostate
CPT/HCPCS: 36415; 84153

== ENCOUNTER 2025-03-27 14:31 | Outpatient (AMB) | payer BC, SELFPAY ==
--- NOTE | 2025-03-27 14:33 | A.OFFVIS_ITS ---
Intake Visit Reasons: yearly follow up/PSA Intake Note: Patient is Present for follow up Urology Med: None Antibiotic Allergy: None Blood Thinner: None Labs done : 03/22/25 PSA 3.17 Todays PVR: 147 Test Fixture Designer Required: No Accompanied by: Self / Same As Patient Allergies pravastatin Adverse Reaction (Intermediate, Verified 03/27/25 14:36) drowsiness rosuvastatin Adverse Reaction (Intermediate, Verified 03/27/25 14:36) myalgia simvastatin Adverse Reaction (Intermediate, Verified 03/27/25 14:36) epigastric pain cologne Allergy (Unknown, Uncoded 09/29/24 13:08) redness and itching HPI Comments Details: Carlos RUTLEDGE is a very pleasant [facility] male. He is a patient of Dr Page. He is seen for the following urologic conditions - lower urinary tract symptoms - elevated PSA PSA floated back up to 3.2 Twelve month follow-up Elevated PSA/Abnormal RADHA: Finished finasteride previously He presents for further evaluation of elevated PSA Current management is medication with 5AR. Laboratory investigations include a total PSA evaluation August 2016 6.2, 6.0, free PSA 8% 02/28 PSA 8.5 - persistent elevation 09/29 PSA 7.4, 09/30 PSA 8.2, 04/01 4.3 10/31 4.9 (stopped finasteride a month ago), 07/04 1.9, 02/01 1.8, 02/02 1.7, 09/03 2.0. 01/03 2.2, 10/05 1.7, 02/04 2.4, 04/07 3.2 Imaging investigations include a transrectal ultrasound Yes Date 09/28 Prostate Volume 55 a prostate MRI Yes 03/31 45gm No areas of diffusion uptake Individualized Prostate Cancer Risk Calculator >10% high risk - PCPT 30% high risk , Discussion regarding TRUS biopsy performed. A TRUS biopsy has been performed and is negative 09/28 multiple cores of chronic prostatitis Therapeutic plan will be continued surveillance [facility] Medical History Chronic prostatitis High prostate specific antigen (PSA) Hypercalcemia Colon cancer screening Vitamin D deficiency Hypercalcemia Hypercholesterolemia Surgical History H/O colonoscopy S/P TURP (status post transurethral resection of prostate) Family History (Updated 09/29/24 @ 13:39 by Suzi Page MD) Father No problems noted. Mother Stroke Sister Breast cancer Hypertension Brother Diabetes Maternal Uncle Prostate cancer Social History (Updated 09/29/24 @ 13:40 by Suzi Page MD) Housing: Apartment Alcohol intake: current Comment: wine once Q 6 months. QOD wine 1-2 glasses Patient Tobacco Use Status: Never used Tobacco e-Cigarette/Vaping Use: Never Used Second Hand Smoke Exposure: No service: No Current occupational status: employed Cognitive needs: No Hearing needs: No Vision needs: Yes Review of Systems Const Denies chills and Denies fever(s) Card Reports no additional complaints and Denies syncope Resp Denies cough GI Denies abdominal pain and Denies heartburn Reports as per HPI and Denies change in libido Neuro Denies syncope Psych Denies change in libido Endo Denies change in libido Physical Exam Const General: cooperative, healthy appearing, comfortable and no acute distress Orientation/consciousness: patient oriented x3 HEENT Face and sinus: Yes normal facial exam Mouth: moist mucous membranes Neck Neck: Yes normal visual inspection, Yes full ROM and Yes trachea midline Chest Chest palpation & inspection: normal inspection of the chest Resp Effort & Inspection: normal respiratory effort, able to speak in complete sentences and no respiratory distress GI Inspection: Yes normal to inspection Back/Spine/Pelvis Cervical Spine: normal cervical lordosis Thoracic/Lumbar Spine: thoracic and lumbar spine normal to inspection Skin General skin exam: no rashes or lesions noted Neuro General: patient oriented x3, gait normal, tone normal and moves all extremities Extrem General: Yes normal to inspection and Yes capillary refill normal Office Procedures Post Void Residual Post Residual Void Post Void Residual (PVR): 147 [id number] Void Residual by ultrasound Results AMB Urinalysis, Automated UA Leukoctes 0 Elie/uL Last Edit by SYLVIA Page on 03/27/25 14:48 UA Nitrite Negative Last Edit by SYLVIA Page on 03/27/25 14:48 UA Urobilinogen 0.2 mg/dL Last Edit by SYLVIA Page on 03/27/25 14:48 UA Protein 0 mg/dL Last Edit by SYLVIA Page on 03/27/25 14:48 UA pH 7.0 Last Edit by Rad[facility] Colon, [facility] on 03/27/25 14:48 UA Blood 0 Chandler/uL Last Edit by Radha Colon, [facility] on 03/27/25 14:48 UA Specific Mcdonough 1.010 Last Edit by Radha Colon, [facility] on 03/27/25 14:4 8 UA Ketone Negative Last Edit by Radha Colon, [facility] on 03/27/25 14:48 UA Bilirubin 0 mg/dL Last Edit by Radha Colon, [facility] on 03/27/25 14:48 UA Glucose 0 mg/dL Last Edit by Radha Colon, [facility] on 03/27/25 14:48 Results Reviewed Results Reviewed: Laboratory Last Values Urine pH (Auto) 7.0 03/27/25 14:40 Specific Mcdonough (Auto) 1.010 03/27/25 14:40 Urine Protein (Auto) 0 mg/dL 03/27/25 14:40 Glucose (UA)(Auto) 0 mg/dL 03/27/25 14:40 Urine Ketones (Auto) Negative 03/27/25 14:40 Urine Blood (Auto) 0 Chandler/uL 03/27/25 14:40 Urine Nitrite (Auto) Negative 03/27/25 14:40 Urine Bilirubin (Auto) 0 mg/dL 03/27/25 14:40 Urine Urobilinogen (Auto) 0.2 mg/dL 03/27/25 14:40 Leukocyte Esterase (Auto) 0 Elie/uL 03/27/25 14:40 Assessment & Plan Assessment & Plan (1) BPH w urinary obs/LUTS: Code(s): N40.1 - Benign prostatic hyperplasia with lower urinary tract symptoms; N13.8 - Other obstructive and reflux uropathy Category: Medical Plan Twelve month follow-up PSA Orders: Orders AMB Urinalysis Automated Today N13.8 - Other obstructive and reflux uropathy, N40.1 - Benign prostatic hyperplasia with lower urinary tract symptoms Prostate Specific Antigen 12 Months N13.8 - Other obstructive and reflux uropathy, N40.1 - Benign prostatic hyperplasia with lower urinary tract symptoms Patient Instructions: This note is constructed using voice recognition software. While every effort has been made to ensure accuracy emergency department physician errors may have been included. Imaging studies, laboratory and physical exam results were discussed and reviewed in detail. No major barriers to patient understanding were identified. An opportunity to ask questions regarding the treatment plan was provided. All questions were answered. The patient expressed understanding and agreement with the above treatment plan. The patient is aware they should contact our office by phone for worsening of their current condition or the appearance of new urologic symptoms. Compliance is encouraged with any medications and followup testing that is ordered. It is a privilege to participate in the urologic care of your patient. If you have any questions or concerns regarding treatment for the above conditions, or other urologic issues, please do not hesitate to contact me. The office telephone contact is [phone]. Sincerely, Dr Jessee Agosto MD, [facility] - Urology Compassionate Specialist Care for the Genitourinary System Coding Level of Care Code Est Pt Level 4 (79058) Diagnoses BPH w urinary obs/LUTS N40.1; N13.8 CPT Codes Post Residual Void - PVR CPT Code: 04503-Uyxf Void Residual by ultrasound ([id number])
--- OUTSIDE RECORDS SUMMARY | 2025-03-27 17:25 | XMS_ITS | Patient Health Record ---
Author Organization [facility] Address [address] [place] [id number] Care Team Providers Care Cash Register Mechanic Name Role Phone Po Suzi PAEZ Primary Care Provider Jose Durant [phone] Allergies No Known Allergies Reason For Referral No Information Medications Medication SIG (Take, Route, Frequency, Duration) Notes Start Date End Date Status Zinc 50 MG 1 tablet Orally Once a day; Duration: 30 day(s) Active Vitamin D 25 MCG (1000 UT) 1 tablet Oral ly Once a day; Duration: 30 day(s) Active Ezetimibe 10 MG TAKE 1 TABLET BY GRAZYNA TH EVERY DAY Oral; Duration: 90 Active Problems Problem Type SNOMED Code ICD Code Onset Dates Problem Status W/U Status Risk Notes Problem Diverticular disease of colon (043796540) Diverticulosis of large intestine without perforation or abscess without bleeding (K57.30) Active confirmed Problem Screening for malignant neoplasm of colon (099794921) Screen for colon cancer (Z12.11) Active confirmed Problem Preprocedural examination (870920254180366) Preprocedural examination (Z01.818) Active confirmed Plan Of Treatment Future Test Test Name Order Date COLONOSCOPY 09/08/2012 COLONOSCOPY 02/04/2023 Insurance Providers Payer Name Payer Address Payer Phone Subscriber Number Group Number Insured Name Patient Relationship to Insured Coverage Start Date Coverage End Date [facility] [address] [place], [place] [id number] BLANCHE RUTLEDGE Self - patient is the insured Medical (General) History Medical History History ICD Code Denies LA,DM,CVA,Lung disease,renal dise ase hypercholesterolemia Negative screening colonoscopy in 2012 Surgical History Surgery Date(Month/Year)
== END 2025-03-27 15:06 | disposition home or self-care (01) ==
LOC: HO.HUSH 14:32
PROVIDERS: PCP Internal Medicine; Visit Provider Urology
DX: N40.1 Benign prostatic hyperplasia with lower urinary tract symptoms (principal); N13.8 Other obstructive and reflux uropathy
CPT/HCPCS: 99214

== ENCOUNTER → 2025-03-27 14:31 | Outpatient (BNVA) | payer BC, SELFPAY | PROVIDERS: PCP Internal Medicine; Visit Provider Urology | DX: N40.1 Benign prostatic hyperplasia with lower urinary tract symptoms (principal) | CPT/HCPCS: 51798; 81003 ==

== ENCOUNTER 2025-04-04 08:23 | Outpatient (REF) | payer BC, SELFPAY ==
--- OUTSIDE RECORDS SUMMARY | 2025-04-04 08:35 | XMS_ITS | Patient Health Record ---
Author Organization [facility] Address [address] [place] [id number] Care Team Providers Care Rules Examiner Name Role Phone Po Suzi PAEZ Primary Care Provider Jose Durant [phone] Allergies No Known Allergies Reason For Referral [...] Risk Notes Problem Diverticular disease of colon (429292141) Diverticulosis of large intestine without perforation or abscess without bleeding (K57.30) Active confirmed Problem Screening for malignant neoplasm of colon (263172114) Screen for colon cancer (Z12.11) Active confirmed Problem Preprocedural examination (036327327676606) Preprocedural examination (Z01.818) Active confirmed Plan Of Treatment Future Test Test Name Order Date COLONOSCOPY 09/08/2012 COLONOSCOPY 02/04/2023 Insurance Providers Payer Name Payer Address Payer Phone Subscriber Number Group Number Insured Name Patient Relationship to Insured Coverage Start Date Coverage End Date [facility] [address] [place], [place] [id number] BLANCHE RUTLEDGE Self - patient is the insured Medical (General) History Medical History History ICD Code Denies AL,DM,CVA,Lung disease,renal dise ase hypercholesterolemia Negative screening colonoscopy in 2012 Surgical History Surgery Date(Month/Year)
[2025-04-04 09:35] LABS: Alanine Aminotransferase 19 U/L (0-40); Albumin Level 4.3 g/dL (3.5-5.0); Alkaline Phosphatase 78 U/L (39-117); Anion Gap 7 (12-20); Aspartate Amino Transferase 20 U/L (5-37); Blood Urea Nitrogen 11 mg/dL (9-16); Calcium 9.8 mg/dL (8.4-10.2); Carbon Dioxide 26 mmol/L (22-29); Chloride 112 mmol/L (96-108); Cholesterol 210 mg/dL (<200); Estimated Glomerular Filt Rate > 60; HDL Cholesterol 36 mg/dL (>40); Potassium 4.3 mmol/L (3.3-5.1); Sodium 141 mmol/L (135-145); Total Protein 7.1 g/dL (6.5-8.0); Triglycerides 114 mg/dL (<150)
== END 2025-04-04 08:24 | disposition home or self-care (01) ==
LOC: HO.LAB 08:23
PROVIDERS: PCP Internal Medicine; Visit Provider Internal Medicine
DX: E78.00 Pure hypercholesterolemia, unspecified (principal)
CPT/HCPCS: 36415; 80053; 80061

== ENCOUNTER 2025-04-09 15:46 | Outpatient (AMB) | payer BC, SELFPAY ==
[2025-04-09 15:48] VITALS: BP 144/90; PULSE 73; TEMP 36.1; O2SAT 98; BMI 26.8
--- NOTE | 2025-04-09 15:48 | A.OFFPC_ITS ---
Vital Signs 04/09/25 15:48 Height 6 ft 2 in Weight 208 lb 6 oz BMI 26.8 BP 144/90 H Blood Pressure Location Lt brachial Position Sitting Pulse 73 Pulse Source Pulse Oximeter Temp 97.0 F Temp Source Temporal Artery Scan Pulse Oximetry (%) 98 Oxygen Delivery Method Room Air Intake Visit Reasons: cholesterol Allergies pravastatin Adverse Reaction (Intermediate, Verified 04/09/25 15:48) drowsiness rosuvastatin Adverse Reaction (Intermediate, Verified 04/09/25 15:48) myalgia simvastatin Adverse Reaction (Intermediate, Verified 04/09/25 15:48) epigastric pain cologne Allergy (Unknown, Uncoded 04/09/25 15:48) redness and itching Tobacco use date assessed: 04/09/25 Fall risk assessment: No Falls in past year Last assessed Fall Risk: 04/09/25 Dental Screening Dental Screen Date: 04/09/25 Did you have a dental visit in the last 12 months?: Yes Did you have a dental problem in the last 6 months where you did not have access to dental care?: No Was dental information given to patient?: Patient has dentist [facility] Medical History Chronic prostatitis High prostate specific antigen (PSA) Hypercalcemia Colon cancer screening Vitamin D deficiency Hypercalcemia Hypercholesterolemia Surgical History H/O colonoscopy S/P TURP (status post transurethral resection of prostate) Family History Father No problems noted. Mother Stroke Sister Breast cancer Hypertension Brother Diabetes Maternal Uncle Prostate cancer Social History Housing: Apartment Alcohol intake: current Comment: wine once Q 6 months. QOD wine 1-2 glasses Patient Tobacco Use Status: Never used Tobacco e-Cigarette/Vaping Use: Never Used Second Hand Smoke Exposure: No service: No Current occupational status: employed Cognitive needs: No Hearing needs: No Vision needs: Yes Questionnaire PHQ-9 Over the last 2 weeks, how often have you been bothered by any of the following problems? 1. Little interest or pleasure in doing things: not at all 2. Feeling down, depressed, or hopeless: not at all 3. Trouble falling or staying asleep, or sleeping too much: not at all 4. Feeling tired or having little energy: not at all 5. Poor appetite or overeating: not at all 6. Feeling bad about yourself - or that you are a failure or have let yourself or your family down: not at all 7. Trouble concentrating on things, such as reading the newspaper or watching television: not at all 8. Moving or speaking so slowly that other people could have noticed. Or the opposite - being so fidgety or restless that you have been moving around a lot more than usual: not at all 9. Thoughts that you would be better off or of hurting yourself in some way: not at all Total score: 0 Depression Screening Interpretation: Negative Depression Screening Done: Yes Source: Developed by Drs. Jose Barreto, Vicenta Bashir, Luis Morton and colleagues, with an educational radha from [employer] Thrive Questionnaire Date Thrive assessed: 09/29/24 I am a: Patient What is your living situation today?: I have a steady place to live Within the past 12 months, did the food you bought not last and you didn't have the money to get more?: I choose not to answer this question Within the past 12 months, did you worry whether your food would run out before you got money to buy more?: I choose not to answer this question Do you have trouble paying for medicines?: No Do you have trouble getting transportation to medical appointments?: No Do you have trouble paying your heating and electricity bill?: No Do you have trouble taking care of your child, family member or friend?: No Do you have trouble with day-to-day activities such as bathing, preparing meals, shopping, managing finances, etc.?: No Are you currently unemployed and looking for a job?: No Are you interested in more education?: No Please select the resources that you would like help with: None Currently or been in a relationship where the following occur: I choose not to answer THRIVE Score: 0 AUDIT C Alcohol Use Questionnaire (AUDIT-C) 1. How often do you have a drink containing alcohol?: Monthly or less 2. How many drinks containing alcohol do you have on a typical day when you are drinking?: 1 or 2 3. How often do you have six or more drinks on one occasion?: Never Total Score: 1 TIMI-7 AMB Questionnaire TIMI-7 Date TIMI - 7 assessed: 09/29/24 Feeling nervous, anxious, or on edge: 0 = Not at all Not being able to stop or control worryin = Not at all Worrying too much about different things: 0 = Not at all Trouble relaxin = Not at all Being so restless that it is hard to sit still: 0 = Not at all Becoming easily annoyed or irritable: 0 = Not at all Feeling afraid as if something awful might happen: 0 = Not at all Total TIMI-7 score (0-4 normal; 5-9 mild; 10-14 moderate; 15-21 severe): 0 Source: Developed by Drs. Jose Barreto, Vicenta Bashir, Luis Morton and colleagues, with an educational radha from [employer] Physical exam (Primary Care) Vital Signs: Last Vital Signs Temp 97.0 F 04/09/25 15:48 Pulse 73 04/09/25 15:48 BP 144/90 H 04/09/25 15:48 Pulse Ox 98 04/09/25 15:48 Oxygen Delivery Method Room Air 04/09/25 15:48 BMI result Body Mass Index 26.8 Tobacco/Smoking Status: Tobacco use Status Tobacco use date assessed 04/09/25 04/09/25 15:52 Patient Tobacco Use Status Never used Tobacco 04/09/25 15:52 e-Cigarette/Vaping Use Never Used 04/09/25 15:52 PHQ-9: PHQ-9 Score PHQ-9: Total score 0 04/09/25 15:52 Depression Screening Interpretation: Negative Thrive Assessment: Date of Thrive Assessment Date Thrive assessed 09/29/24 04/09/25 15:52 Currently or been in a relationship where the following occur: I choose not to answer Const General: alert; No acute distress Eyes Conjunctivae: conjunctivae normal Resp Auscultation: clear to auscultation bilaterally Cardio Rate: regular rate Rhythm: regular rhythm GI Inspection: Yes normal to inspection Extrem General: Yes normal to inspection and No edema Coding Level of Care Code Est Pt Level 4 (30063) Complex EM visit Add On G2211 Diagnoses Blood pressure elevated without history of HTN R03.0 Hypercholesterolemia E78.00 BPH w urinary obs/LUTS N40.1; N13.8 Anemia D64.9 Assessment & Plan Assessment & Plan (1) Blood pressure elevated without history of HTN: Code(s): R03.0 - Elevated blood-pressure reading, without diagnosis of hypertension Category: Medical Plan: Continue to monitor blood pressure, low sodium diet (2) Hypercholesterolemia: Code(s): E78.00 - Pure hypercholesterolemia, unspecified Category: Medical Plan: Avoid fried foods, chicken skin, eggs, butter margarine, pastries and meat. Be it pork or beef they have a lot of cholesterol on Zetia. Patient can not tolerate statins. LDL goal of less than 130 (3) BPH w urinary obs/LUTS: Code(s): N40.1 - Benign prostatic hyperplasia with lower urinary tract symptoms; N13.8 - Other obstructive and reflux uropathy Category: Medical Plan: Patient is being followed up by Urology and continued surveillance of PSA (4) Anemia: Code(s): D64.9 - Anemia, unspecified Category: Medical Plan: Stable Plan History of Present Illness The patient is a 64-year-old overweight male presenting for a follow-up visit with a history of hypercholesterolemia, BPH, and anemia. He was last seen in September for a physical exam. The patient has a history of an elevated PSA and sees urology for yearly follow- up and surveillance. He also has chronic, stable anemia. His cholesterol remains elevated, although it is improved, with a recent LDL of 152. He is unable to tolerate statins. Recent blood work from March showed normal electrolytes, renal function, liver function, and a blood sugar of 97. His last colonoscopy was in May 2023. Health Maintenance The plan includes continued blood pressure monitoring and adherence to a low- sodium diet. Social History - Diet: A low-sodium diet was recommended. Review of Systems Physical Exam Results - Labs: Recent blood work from March showed chronic, stable anemia. - Electrolytes: Normal. - Renal function: Normal. - Glucose: 97, normal. - Liver function: Normal. - Lipid Panel: Cholesterol remains elevated but is improved; LDL is 152. - PSA: Elevated. - Tests and Diagnostics: A colonoscopy was performed in May 2023. Plan Patient was informed and verbally consented to the use of an ambient scribe for clinic note documentation during this visit. 1. Hypercholesterolemia The patient's cholesterol remains elevated but improved, with an LDL of 152. Due to statin intolerance, the plan is to initiate Zetia. The goal is an LDL of less than 130. 2. Anemia The patient has chronic, stable anemia, which will continue to be monitored. 3. Elevated Psa The patient is being followed by urology for an elevated PSA. The plan is to continue yearly surveillance. Discussion Notes I discussed the patient's ongoing medical issues, including hypercholesterolemia, BPH with elevated PSA, and chronic stable anemia. We reviewed his recent lab work, noting that his cholesterol remains elevated with an LDL of 152. Given his inability to tolerate statins, I recommended starting Zetia to achieve an LDL goal of less than 130. I advised him to continue with urology for yearly PSA surveillance and to monitor his blood pressure while following a low-sodium diet. Patient Instructions - You will start taking a medication called Zetia for your high cholesterol. - Your goal for bad cholesterol (LDL) is to be less than 130. - Continue to check your blood pressure regularly. - Follow a diet that is low in salt. - Continue to see your urologist every year to check your PSA levels.
--- OUTSIDE RECORDS SUMMARY | 2025-04-09 18:47 | XMS_ITS | Patient Health Record ---
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 Seed Production Name Role Phone Po Suzi PAEZ Primary Care Provider Jose Durant [phone] Allergies No Known Allergies Reason For Referral [...] Risk Notes Problem Diverticular disease of colon (687757627) Diverticulosis of large intestine without perforation or abscess without bleeding (K57.30) Active confirmed Problem Screening for malignant neoplasm of colon (433052371) Screen for colon cancer (Z12.11) Active confirmed Problem Preprocedural examination (557575585775129) Preprocedural examination (Z01.818) Active confirmed Plan Of Treatment Future Test Test Name Order Date COLONOSCOPY 09/08/2012 COLONOSCOPY 02/04/2023 Insurance Providers Payer Name Payer Address Payer Phone Subscriber Number Group Number Insured Name Patient Relationship to Insured Coverage Start Date Coverage End Date [facility] [address] [place], [place] [id number] BLANCHE RUTLEDGE Self - patient is the insured Medical (General) History Medical History History ICD Code Denies OR,DM,CVA,Lung disease,renal dise ase hypercholesterolemia Negative screening colonoscopy in 2012 Surgical History Surgery Date(Month/Year)
== END 2025-04-09 16:10 | disposition home or self-care (01) ==
LOC: HO.HMCH 15:47
PROVIDERS: PCP Internal Medicine; Visit Provider Internal Medicine
DX: R03.0 Elevated blood-pressure reading, without diagnosis of hypertension (principal); E78.00 Pure hypercholesterolemia, unspecified; N40.1 Benign prostatic hyperplasia with lower urinary tract symptoms; N13.8 Other obstructive and reflux uropathy; D64.9 Anemia, unspecified